=== PATIENT | male | born 1955 | race Caucasian/White ===

== ENCOUNTER 2017-02-23 17:34 | Inpatient (IN) | payer MEDICARE, OTHER ==
[~2017-02-23] VITALS: Ht 175.3 cm; Wt 87.7 kg
[~2017-02-23 17:34] MED LIST: ATOR40TA68 PO; BENA20TA48 PO; ERGO500014 PO; FURO40TA4 PO; HYDR-3672 PO; METF1000 PO; NIT4 SL; OMEP40CA6 PO; POTA8CAP PO; PRAS10TA6 PO; RIVA20TA PO; SYN1 PO
[2017-02-23 17:35] VITALS: Ht 175.3 cm; Wt 87.7 kg
[2017-02-23] MEDS ORDERED: SOD CHLORIDE 0.9% 500 ML IV STA (18:16)
--- NOTE | 2017-02-23 18:52 | RADRPT ---
PROCEDURE: XR Chest. CLINICAL INDICATION: Chest pain. TECHNIQUE: Single frontal view of the chest. COMPARISON: 06/11/2016 FINDINGS: Cardiomegaly. Pulmonary vascular congestion and bilateral patchy air space disease at lung bases. N o signs of pleural fluid or pneumothorax are seen. The osseous structures and soft tissues are unrem arkable. IMPRESSION: Mild failure. RPTAT: [facility] Physician Theresa Date Time Electronically viewed and signed by Anu Yee Physician on 02/23/2017 18:52 RS/
[2017-02-23 18:53] LABS: BASOPHILS % 0.3 % (0.0-2.0); EOSINOPHILS # 0.1 10^3/ul (0.0-0.5); EOSINOPHILS % 1.3 % (0.0-7.0); HEMATOCRIT 33.4 % (42.0-52.0); LYMPHOCYTES # 0.7 10^3/ul (0.8-2.9); LYMPHOCYTES % 11.2 % (15.0-51.0); MEAN CORPUSCULAR HEMOGLOBIN 29.9 pg (29.0-33.0); MEAN CORPUSCULAR HGB CONC 32.9 g/dl (32.0-37.0); MEAN CORPUSCULAR VOLUME 90.8 fl (82.0-101.0); MEAN PLATELET VOLUME 11.4 fl (7.4-10.4); MONOCYTE # 0.5 10^3/ul (0.3-0.9); MONOCYTES % 8.2 % (0.0-11.0); NEUTROPHILS % 78.7 % (39.0-77.0); PLATELET COUNT 256 10^3/UL (140-415); RED BLOOD COUNT 3.68 10^6/ul (4.70-6.10); RED CELL DISTRIBUTION WIDTH 14.5 % (11.5-14.5); WHITE BLOOD COUNT 6.4 10^3/ul (4.8-10.8)
[2017-02-23] MEDS ORDERED: HYDR100T7 PO (19:07)
[2017-02-23] MEDS ORDERED: BENA40TA41 PO (19:07)
[2017-02-23] MEDS ORDERED: SPIR25TA PO (19:09)
[2017-02-23 19:11] LABS: INR 2.14; PROTIME 24.1 Sec (12.2-14.2); PT RATIO 1.9
[2017-02-23 19:12] LABS: PARTIAL THROMBOPLASTIN TIME 61.2 Sec (25.0-35.0)
[2017-02-23] MEDS ORDERED: AMLO-147 PO (19:12)
[2017-02-23 19:26] LABS: CALCIUM 9.7 mg/dl (8.4-10.2); CREATININE 1.44 mg/dl (0.61-1.24); POTASSIUM 4.1 mmol/L (3.5-5.1)
[2017-02-23 19:33] LABS: ADD UMIC NO; UR ASCORBIC ACID NEGATIVE (NEGATIVE); UR BILIRUBIN (Dip) NEGATIVE (NEGATIVE); UR BLOOD (Dip) NEGATIVE (NEGATIVE); UR CLARITY CLEAR (CLEAR); UR COLOR STRAW (YELLOW); UR GLUCOSE (Dip) NEGATIVE (NEGATIVE); UR KETONES (Dip) NEGATIVE (NEGATIVE); UR LEUKOCYTE ESTERASE (Dip) NEGATIVE Leu/ul (NEGATIVE); UR NITRITE (Dip) NEGATIVE (NEGATIVE); UR TOTAL PROTEIN (Dip) NEGATIVE (NEGATIVE); UR UROBILINOGEN (Dip) NEGATIVE (NEGATIVE)
[2017-02-23 19:37] LABS: TROPONIN-I 0.038 ng/ml (0.00-0.12)
[2017-02-23] MEDS ORDERED: FUROSEMIDE 40 MG INJ IV ONE (20:00)
[2017-02-23] MEDS ORDERED: METOPROLOL 5 MG INJ IV ONE (21:00)
[2017-02-24] VITALS (9 sets, daily range): BP systolic 117–146; BP diastolic 62–72; PULSE 59–84; RESP 18–20
[2017-02-24] MEDS ORDERED: ACETAMINOPHEN 325 MG TAB PO PRN (04:00)
[2017-02-24] MEDS ORDERED: NACL 0.9% 3 ML SYG IV SCH (04:00)
[2017-02-24] MEDS ORDERED: DOCUSATE SODIUM 100 MG CAP PO PRN (04:00)
[2017-02-24] MEDS ORDERED: ONDANSETRON 4 MG INJ IV PRN (04:00)
[2017-02-24] MEDS ORDERED: BISACODYL (EC) 5 MG TAB PO PRN (04:00)
[2017-02-24 06:02] LABS: BASOPHILS % 0.7 % (0.0-2.0); EOSINOPHILS # 0.2 10^3/ul (0.0-0.5); EOSINOPHILS % 3.6 % (0.0-7.0); HEMATOCRIT 30.6 % (42.0-52.0); HEMOGLOBIN 9.6 g/dl (14.0-18.0); LYMPHOCYTES # 0.7 10^3/ul (0.8-2.9); LYMPHOCYTES % 16.1 % (15.0-51.0); MEAN CORPUSCULAR HEMOGLOBIN 28.8 pg (29.0-33.0); MEAN CORPUSCULAR HGB CONC 31.4 g/dl (32.0-37.0); MEAN CORPUSCULAR VOLUME 91.9 fl (82.0-101.0); MEAN PLATELET VOLUME 11.1 fl (7.4-10.4); MONOCYTE # 0.4 10^3/ul (0.3-0.9); MONOCYTES % 10.3 % (0.0-11.0); NEUTROPHIL # 2.9 10^3/ul (1.6-7.5); NEUTROPHILS % 69.1 % (39.0-77.0); PLATELET COUNT 214 10^3/UL (140-415); RED BLOOD COUNT 3.33 10^6/ul (4.70-6.10); RED CELL DISTRIBUTION WIDTH 14.5 % (11.5-14.5); WHITE BLOOD COUNT 4.2 10^3/ul (4.8-10.8)
[2017-02-24 06:40] LABS: ALBUMIN 3.8 g/dl (3.3-4.9); ALBUMIN/GLOBULIN RATIO 1.4; BILIRUBIN,INDIRECT 0.5 mg/dl (0-1.1); BILIRUBIN,TOTAL 0.5 mg/dl (0.2-1.3); CALCIUM 9.1 mg/dl (8.4-10.2); CHOL/HDL RATIO 10.3 RATIO; CREATININE 1.36 mg/dl (0.61-1.24); POTASSIUM 3.9 mmol/L (3.5-5.1); TOTAL PROTEIN 6.5 g/dl (6.1-8.1)
--- NOTE | 2017-02-24 07:01 | HP ---
Date/Time of Note Date/Time of Note DATE: 02/24/17 TIME: 06:48 Assessment/Plan VTE Prophylaxis VTE Prophylaxis Intervention: other (On Xarelto) Assessment/Plan Chief Complaint/Hosp Course This is a 61-year-old male being admitted to the telemetry floor for: #1 CHF exacerbation: The current time will provide IV diuresis with Lasix twice daily. Will restrict fluid intake to 800 cc a day. Will patient on a cardiac diet. Will monitor I's and O's. Will order 2D echocardiogram. Will consult cardiology. #2 Suspected PVD: Patient describes lower extremity tightness while walking. Based on his medical comorbidities at this time will attempt to rule him out for peripheral vascular disease. Will start by ordering Doppler ultrasounds to rule out DVT though at the current time there is no signs of erythema or redness noted at the calf area. Will consult vascular surgery for further treatment strategy and choice of imaging studies. 1-2+ pedal pulses. #3 diabetes mellitus: Check a hemoglobin A1c, insulin sliding scale. #4 hypertension: Continue home medications #5 CAD: Patient has an extensive cardiac history and multiple cardiac stenting. Continue home medication at this time. Will consult cardiology. #6 acute on chronic kidney disease: We will continue to monitor at this time. Will hold nephrotoxic agents. And monitor renal function. Nephrology consult if indicated. #7 paroxysmal A. fib: Patient currently has an irregularly irregular rhythm currently rate controlled. Continue Xarelto. #8DVT and GI prophylaxis: Patient is currently on Xarelto for A. fib, Protonix Further treatment strategy will be implemented as per the clinical course Problems: HPI/ROS Admit Date/Time Admit Date/Time Hx of Present Illness Chief complaint: Shortness of breath and weakness This is a 61-year-old male who presents today with shortness of breath and weakness over the last few days. Patient states that he become short of breath and weak after walking short distances. Patient states that he also notices leg swelling and he has tightness of his calves which gets relieved with rest. He does report that he takes his medications however he did not take his water pill over the last 2 days. Based on previous records it does appear the patient may be noncompliant with his medications. He denies any chest pain. Allergies: NKDA Medications: See DIA BRO Const: As per HPI Eyes : No pain discharge or redness or change in visual acuity ENT: No pain, sore throat, congestion, congestion, dysphagia or discharge Respiratory: As per HPI Cardiovascular: As per HPI GI : no change in appetite, abdominal pain, nausea, vomiting, diarrhea, constipation, or change in the color his stool Genitourinary: No dysuria, hematuria, flank pain , discharge or CVA tenderness Musculoskeletal: As per HPI Skin: No rash, bruising or hives Neuro: No headache, dizziness, syncope, seizure, focal weakness Endocrine: No polyuria, polydipsia, temperature intolerance Psych: No hallucination, depression, anxiety or suicidal ideation PMH/Family/Social Past Medical History 1. Severe coronary artery disease status post multiple stenting including to the LAD, RCA, left main and left distal circumflex and more recently status post balloon angioplasty of 100% occluded LAD lesion in March 2016. 2. Hyperlipidemia. 3. Hypothyroidism. 4. Chronic paroxysmal atrial fibrillation and SVT. 5. Diabetes mellitus. 6. Hypertension. 7. Gastroesophageal reflux disease. Past Surgical History Status post multiple angiograms, multiple cardiac stents per Family History Significant Family History: no pertinent family hx Social History Alcohol Use: occasionally Smoking Status: Never smoker Drug Use: none Exam/Review of Systems Vital Signs Vitals Vital Signs Date Time Temp Pulse Resp B/P Pulse Ox O2 Delivery O2 Flow Rate FiO2 02/24/17 05:38 63 16 121/80 100 Nasal Cannula 2.0 02/23/17 17:35 99.5 Exam Exam General: Patient is well-developed well-nourished The patient is alert oriented -3 lying comfortably in bed. HEENT: Atraumatic, normocephalic. The pupils are equal, round and reactive. Extraocular motor are intact Neck: Supple with full range of motion. No rigidity or meningismus Chest: Nontender Lungs: Clear to auscultation bilaterally no crackles rales or wheezing Heart: Irregularly irregular rhythm, no overt murmurs appreciated auscultation Abdomen: Soft , nontender, nondistended , bowel sounds are present. No guarding no rebound tenderness , No masses or organomegaly. No costovertebral temporal angle mass Extremities: 1+ pitting edema of the bilateral lower extremities from the foot all the way up to the lower shins Neurologic: Normal mental status, speech normal, cranial nerves II through XII are intact, motor and sensory are intact, no focal weakness Additional Comments PROCEDURE: XR Chest. CLINICAL INDICATION: Chest pain. TECHNIQUE: Single frontal view of the chest. COMPARISON: 06/11/2016 FINDINGS: Cardiomegaly. Pulmonary vascular congestion and bilateral patchy air space disease at lung bases. No signs of pleural fluid or pneumothorax are seen. The osseous structures and soft tissues are unremarkable. IMPRESSION: Mild failure. RPTAT: [facility] Anu Yee Physician Date Time Electronically viewed and signed by Anu Yee Physician on 02/23/2017 18:52 RS/ Telemetry monitoring: Shows irregularly irregular rhythm currently controlled at around 70-80 bpm. Labs Result Diagram: 02/23/170 02/23/17 1830 Medications Medications Current Medications Ondansetron HCl (Zofran Inj) 4 mg Q6H PRN IV NAUSEA AND/OR VOMITING; Start at 04:00 Acetaminophen (Tylenol Tab) 650 mg Q6H PRN PO PAIN LEVEL 1-3 OR FEVER; Start at 04:00 Docusate Sodium (Colace) 100 mg Q12H PRN PO CONSTIPATION; Start 02/24/17 at 04: 00 Bisacodyl (Dulcolax) 5 mg DAILY PRN PO CONSTIPATION; Start 02/24/17 at 04:00 Pantoprazole (Protonix Iv) 40 mg DAILY@06 IV ; Start 02/24/17 at 06:00 Amlodipine Besylate (Norvasc) 10 mg DAILY PO ; Start 02/24/17 at 09:00 Benazepril HCl (Lotensin) 40 mg DAILY PO ; Start 02/24/17 at 09:00 Hydralazine HCl (Apresoline) 100 mg Q8 PO ; Start 02/24/17 at 06:00 Prasugrel (Effient) 10 mg DAILY PO ; Start 02/24/17 at 09:00; Status UNV Spironolactone (Aldactone) 25 mg DAILY PO ; Start 02/24/17 at 09:00 MICAELA RIVERA Feb 24, 2017 06:59
[2017-02-24] MEDS ORDERED: GLUCOSE GEL 15 GRAM TUBE BUCCAL PRN (07:30)
[2017-02-24] MEDS ORDERED: GLUCAGON 1 MG INJ IM PRN (07:30)
[2017-02-24] MEDS ORDERED: GLUCOSE GEL 15 GRAM TUBE PO PRN ×2 (07:30)
[2017-02-24] MEDS ORDERED: DEXTROSE 50% 50 ML SYRINGE IV PRN ×2 (07:30)
[2017-02-24 07:39] LABS: THYROID STIMULATING HORMONE 1.67 MIU/L (0.465-4.680)
[2017-02-24 08:06] LABS: TROPONIN-I 0.047 ng/ml (0.00-0.12)
[2017-02-24 08:10] LABS: CK-MB 1.01 ng/ml (0.0-2.4)
--- NOTE | 2017-02-24 08:13 | RADRPT ---
PROCEDURE: US bilateral lower extremity veins. CLINICAL INDICATION: Bilateral leg pain and swelling. TECHNIQUE: Multiple longitudinal and transverse images of the bilateral lower extremity veins were obtained with clancy scale and color Doppler imaging. The common femoral vein, femoral vein, and popl iteal vein were evaluated. 2D grayscale measurements with compression sonography, color Doppler, and pulsed Doppler with augmentation. COMPARISON: No prior studies are available for comparison. FINDINGS: The bilateral common femoral, femoral and popliteal veins are normally compressible throughout. Col or flow demonstrates normal filling of the vessels. Normal waveforms are visualized and there is no rmal response to augmentation. IMPRESSION: 1. No evidence of deep vein thrombosis involving either lower extremity. RPTAT: QQ .Chavez Hebert MD, MD Date Time Electronically viewed and signed by .Chavez Hebert MD, on 02/24/2017 08:12 .R/
[2017-02-24] MEDS: PANTOPRAZOLE 40 MG INJ IV SCH (09:21)
[2017-02-24] MEDS: INSULIN ASPART [NOVOLOG] 3 ML PEN SC SCH ×4 (09:22→21:00)
[2017-02-24] MEDS: AMLODIPINE 10 MG TAB PO SCH (10:00)
[2017-02-24] MEDS: SPIRONOLACTONE 25 MG TAB PO SCH (10:00)
[2017-02-24] MEDS: FUROSEMIDE 40 MG INJ IV SCH ×2 (10:00→18:15)
[2017-02-24 11:34] LABS: TROPONIN-I 0.035 ng/ml (0.00-0.12)
[2017-02-24 11:47] LABS: CK-MB 1.14 ng/ml (0.0-2.4)
[2017-02-24] MEDS: BENAZEPRIL 40 MG TAB PO SCH (12:44)
[2017-02-24] MEDS: PRASUGREL HYDROCHLORIDE 10 MG TABLET PO SCH (12:53)
--- NOTE | 2017-02-24 16:05 | RADRPT ---
PROCEDURE: US bilateral lower extremity arteries. CLINICAL INDICATION: Bilateral leg pain. Claudication that interferes significantly with the alireza ent's lifestyle. TECHNIQUE: Multiple longitudinal and transverse images of the bilateral lower extremity arteries w ere obtained with clancy scale, pulsed Doppler, and color Doppler imaging. COMPARISON: No prior studies are available for comparison. FINDINGS: Right CAMPUS DIRECTOR:105 cm/sec PSFA:108 cm/sec MSFA:257 cm/sec DSFA:116 cm/sec POP:75 cm/sec SALESPERSON MEN'S HATS:69 cm/sec DPA:26 cm/sec Left CAMPUS DIRECTOR:78 cm/sec PSFA:87 cm/sec MSFA:343 cm/sec DSFA:74 cm/sec POP:43 cm/sec SALESPERSON MEN'S HATS:41 cm/sec DPA:15 cm/sec The right ankle-brachial index is 0.94 and the left ankle-brachial index is 0.94. High velocity flow is present in the mid right superficial femoral artery indicating approximately 5 0% stenosis. High velocity flow is present in the mid left superficial femoral artery indicating ap proximately 75% stenosis. There is abnormal monophasic flow bilaterally in the popliteal and calf arteries. IMPRESSION: 1. Approximately 50% stenosis in the mid right superficial femoral artery with monophasic flow in t he popliteal and calf arteries consistent with significant stenosis. 2. Approximately a 75% stenosis in the mid left superficial femoral artery with monophasic flow in the popliteal and calf arteries consistent with significant stenosis. RPTAT: QQ .Chavez Hebert MD, Date Time Electronically viewed and signed by .Chavez Hebert MD, on 02/24/2017 16:05 .R/
--- NOTE | 2017-02-24 16:05 | RADRPT ---
PROCEDURE: US Lower extremity Venous. CLINICAL INDICATION: Vein mapping, TECHNIQUE: Multiple sonographic images of the bilateral lower extremity superficial venous system was obtained utilizing grayscale, color-flow, compressive sonography and doppler imaging with augmen tation. The images were reviewed on a PACS workstation. COMPARISON: None. FINDINGS: Measurements from the great saphenous veins were obtained. Right great saphenous vein was divided into eight segments with the first segment being more proxima l in the 8th segment more distal. Measurements were obtained as below in mm. 1. 5.2 mm 2. 2.4 mm 3. 3.4 mm 4. 3.0 mm 5. 1.8 mm 6. 2.4 mm 7. 2.4 mm 8. 2.5 mm Left great saphenous vein was divided into eight segments with the first segment being more proximal in the 8th segment more distal. Measurements were obtained as below in mm. 1. 4.6 mm 2. 2.8 mm 3. 2.7 mm 4. 2.8 mm 5. 2.5 mm 6. 1.2 mm 7. 2.5 mm 8. 2.3 mm . IMPRESSION: Bilateral greater saphenous vein mapping as described.. RPTAT: AA .Malvin Landaverde MD, Date Time Electronically viewed and signed by .Malvin Landaverde MD, MD on 02/24/2017 16:05 .S/
[2017-02-24] MEDS: RIVAROXABAN 20 MG TABLET PO SCH (18:46)
[2017-02-24] MEDS: ISOSORBIDE DINITRATE 10 MG TAB PO SCH (21:11)
[2017-02-24] MEDS: METOPROLOL 25 MG TAB PO SCH (21:12)
[2017-02-24] MEDS: INSULIN GLARGINE [LANtus] 3 ML PEN SC SCH (21:21)
[2017-02-25] VITALS (14 sets, daily range): BP systolic 96–132; BP diastolic 53–72; PULSE 54–133; RESP 18–19
[2017-02-25 01:47] LABS: TROPONIN-I 0.03 ng/ml (0.00-0.12)
[2017-02-25 01:48] LABS: CK-MB 0.83 ng/ml (0.0-2.4)
[2017-02-25] MEDS: ACCU-CHEK XX SCH (02:00)
--- NOTE | 2017-02-25 05:42 | HP ---
DATE OF ADMISSION: 02/24/2017 Dear doctors: HISTORY OF PRESENT ILLNESS: Mr. Chen is a 61-year-old gentleman who presented to [facility] secondary to shortness of breath and weakness over the past 4 or 5 days. The patient mentioned that also he has been having difficulty with his ambulation and he can only walk for about 2-5 minutes prior to having discomfort in bilateral lower extremities. There is some language barrier. The patient is Romansh speaking, and he had difficulty understanding with what we were trying to ask him in regards for rest pain versus how long he has been having the current symptoms. At the moment the patient denies chest pain, nausea, vomiting, fever or chills. The patient does not have rest pain; however, it is unclear which limb is having more symptoms over the other, or if they are equally symptomatic. REVIEW OF SYSTEMS: Fourteen point review performed negative except was was mentioned in the HPI. PAST MEDICAL HISTORY: Entails coronary artery disease, hyperlipidemia, hypothyroidism, chronic paroxysmal atrial fibrillation, diabetes, hypertension, GERD, morbid obesity, BMI of 29. PAST SURGICAL HISTORY: Multiple coronary angiograms, multiple cardiac stents. FAMILY HISTORY: Positive for hypertension. SOCIAL HISTORY: Denies tobacco, alcohol or illicit drug use excessively. He does drink alcohol socially. PHYSICAL EXAMINATION: Alert and oriented x3. No apparent distress. HEENT: Normocephalic and atraumatic. PERRLA. EOMI. Mucosa moist. NECK: Supple. No carotid bruit. LUNGS: Clear to auscultation. Bilateral bases with crackles. Good airway entry. ABDOMEN: Soft, nontender and nondistended. Bowel sounds positive. Truncal obesity. EXTREMITIES: Right lower extremity, palpable femoral pulse, nonpalpable pedal pulse. Motor and sensory intact. Capillary refill 3-4 seconds. Presence of telangiectasias, spider veins and varicose veins. Edema of 1+. Left lower extremity, palpable femoral pulse, nonpalpable pedal pulse. Motor and sensory intact. Capillary refill 3-4 seconds. Presence of telangiectasias, spider veins and varicose veins in the lower leg. Edema of 1+. ASSESSMENT AND PLAN: 1. Bilateral lower extremity atherosclerosis with a disabling claudication: It seems the patient may have some component of atherosclerosis; however, it is difficult to ascertain how long the patient has had the symptoms versus worsening over the past month. Further the patient did not describe which limb has more symptoms than the other. We will plan to obtain noninvasive vascular studies of bilateral lower extremity arterial duplex to further delineate his [____] disease. 2. Bilateral lower extremity venous insufficiency: Is seems the patient has component of venous insufficiency as he does have varicose veins bilaterally in his lower leg. At the moment no current intervention will be needed; however, as an outpatient we will plan to schedule the patient for bilateral lower reflux studies to further delineate if the pating has superficial versus deep venous reflux. 3. Optimize vascular status (BP medications, nutrition, exercise, sugar control, antiplatelets). 4. Discussed the findings, plans ad manageent with the patient. He understands that with a certified technical support engineer. Thank you for allowing us to partake in the care of your patient. Please call with any questions. Dictated By: Boy Durbin MD /rain/elaine /Document#: [id number]
[2017-02-25] MEDS: PANTOPRAZOLE 40 MG INJ IV SCH (05:56)
[2017-02-25] MEDS: FUROSEMIDE 40 MG INJ IV SCH (05:56)
[2017-02-25] MEDS: INSULIN ASPART [NOVOLOG] 3 ML PEN SC SCH ×4 (08:00→20:43)
[2017-02-25] MEDS: METOPROLOL 25 MG TAB PO SCH ×2 (08:43→20:29)
[2017-02-25] MEDS: PRASUGREL HYDROCHLORIDE 10 MG TABLET PO SCH (08:43)
[2017-02-25] MEDS: AMLODIPINE 10 MG TAB PO SCH (08:43)
[2017-02-25] MEDS: SPIRONOLACTONE 25 MG TAB PO SCH (08:43)
[2017-02-25] MEDS: BENAZEPRIL 40 MG TAB PO SCH (08:44)
[2017-02-25] MEDS: ISOSORBIDE DINITRATE 10 MG TAB PO SCH ×3 (08:44→20:30)
[2017-02-25 10:09] LABS: BASOPHILS % 0.3 % (0.0-2.0); EOSINOPHILS # 0.1 10^3/ul (0.0-0.5); EOSINOPHILS % 1.9 % (0.0-7.0); HEMOGLOBIN 10.6 g/dl (14.0-18.0); LYMPHOCYTES # 0.8 10^3/ul (0.8-2.9); LYMPHOCYTES % 11.4 % (15.0-51.0); MEAN CORPUSCULAR HEMOGLOBIN 29.1 pg (29.0-33.0); MEAN CORPUSCULAR HGB CONC 32.1 g/dl (32.0-37.0); MEAN CORPUSCULAR VOLUME 90.7 fl (82.0-101.0); MEAN PLATELET VOLUME 10.8 fl (7.4-10.4); MONOCYTE # 0.6 10^3/ul (0.3-0.9); MONOCYTES % 8.7 % (0.0-11.0); NEUTROPHIL # 5.4 10^3/ul (1.6-7.5); NEUTROPHILS % 77.4 % (39.0-77.0); PLATELET COUNT 261 10^3/UL (140-415); RED BLOOD COUNT 3.64 10^6/ul (4.70-6.10); RED CELL DISTRIBUTION WIDTH 14.2 % (11.5-14.5); WHITE BLOOD COUNT 6.9 10^3/ul (4.8-10.8)
[2017-02-25 10:35] LABS: CALCIUM 9.1 mg/dl (8.4-10.2); CREATININE 1.24 mg/dl (0.61-1.24); MAGNESIUM 1.8 mg/dl (1.7-2.5); POTASSIUM 4.4 mmol/L (3.5-5.1)
[2017-02-25 10:46] LABS: TROPONIN-I 0.029 ng/ml (0.00-0.12)
[2017-02-25 10:51] LABS: CK-MB 0.85 ng/ml (0.0-2.4)
[2017-02-25 10:56] LABS: IRON 35 ug/dl (35-150)
[2017-02-25 11:05] LABS: TOTAL IRON BINDING CAPACITY 250 ug/dl (241-421)
--- NOTE | 2017-02-25 13:33 | CONS ---
Date/Time of Note Date/Time of Note DATE: 02/25/17 TIME: 13:27 Assessment/Plan Assessment/Plan Chief Complaint/Hosp Course IMP: 1. chest pain-negative trop x 3 2.PAD/claudication 3.HTN 4.HL 5. H/O stent 6. cardiomyopathy-with decrased LVEF by echo this admit 7. Bradycardia Recc: -Tele -serial ecg's -lexiscan stress test today -Continue BB/isordil/norvasc/benazepril -Continue effient/xarelto Problems: Consultation Date/Type/Reason Admit Date/Time Feb 24, 2017 at 03:35 Initial Consult Date 02/24/2017 Type of Consultation: cardiology Reason for Consultation chest pain Referring Provider: REYMUNDO GARCIA Exam/Review of Systems Vital Signs Vitals Vital Signs Date Time Temp Pulse Resp B/P Pulse Ox O2 Delivery O2 Flow Rate FiO2 02/25/17 11:44 97.8 61 18 122/69 97 02/25/17 03:57 Room Air 02/24/17 07:19 2.0 Intake and Output 02/24/17 02/24/17 02/25/17 15:00 23:00 07:00 Intake Total 400 ml 500 ml Balance 400 ml 500 ml Exam Review of Systems: CONSTITUTIONAL: No fevers, chills. PULMONARY: No sob CARDIOVASCULAR: intermittent chest pain/palpitations GASTROINTESTINAL: No nausea/vomiting. GENITOURINARY: No hematuria/dysuria. MUSCULOSKELETAL: No myagias/arthalgias. PSYCHIATRIC: The patient denies depression. NEUROLOGIC: No weakness Constitutional: alert Psych: no complaints Head: normocephalic ENMT: mucosa pink and moist Neck: jvd (9 cm water), supple Respiratory: diminished breath sounds (at bases/B) Cardiovascular: regular rate and rhythm Gastrointestinal: non-tender, soft Musculoskeletal: muscle tone (normal) Extremities: edema (none) Neurological: other (No focal deficits) Results Result Diagram: 02/25/17 0956 02/25/17 0956 Results 24 hrs Laboratory Tests Test 02/24/17 17:21 02/24/17 17:41 02/24/17 21:05 02/25/17 00:47 Bedside Glucose 64 L 76 171 Creatine Kinase 34 Creatine Kinase Index 2.4 Creatinine Kinase MB (Mass) 0.83 Troponin I 0.030 Test 02/25/17 07:53 02/25/17 09:56 Bedside Glucose 81 White Blood Count 6.9 # Red Blood Count 3.64 L Hemoglobin 10.6 L Hematocrit 33.0 L Mean Corpuscular Volume 90.7 Mean Corpuscular Hemoglobin 29.1 Mean Corpuscular Hemoglobin Concent 32.1 Red Cell Distribution Width 14.2 Platelet Count 261 # Mean Platelet Volume 10.8 H Neutrophils % 77.4 H Lymphocytes % 11.4 L Monocytes % 8.7 Eosinophils % 1.9 Basophils % 0.3 Nucleated Red Blood Cells % 0.0 Neutrophils # 5.4 Lymphocytes # 0.8 Monocytes # 0.6 Eosinophils # 0.1 Basophils # 0.0 Nucleated Red Blood Cells # 0.0 Sodium Level 140 Potassium Level 4.4 Chloride Level 93 L Carbon Dioxide Level 33 H Anion Gap 18 H Blood Urea Nitrogen 33 H Creatinine 1.24 Glucose Level 137 # Hemoglobin A1c 5.4 Calcium Level 9.1 Magnesium Level 1.8 Iron Level 35 Total Iron Binding Capacity 250 Percent Iron Saturation 14 L Creatine Kinase 32 Creatine Kinase Index 2.7 Creatinine Kinase MB (Mass) 0.85 Troponin I 0.029 Medications Medications Current Medications Ondansetron HCl (Zofran Inj) 4 mg Q6H PRN IV NAUSEA AND/OR VOMITING; Start at 04:00 Acetaminophen (Tylenol Tab) 650 mg Q6H PRN PO PAIN LEVEL 1-3 OR FEVER; Start at 04:00 Docusate Sodium (Colace) 100 mg Q12H PRN PO CONSTIPATION; Start 02/24/17 at 04: 00 Bisacodyl (Dulcolax) 5 mg DAILY PRN PO CONSTIPATION; Start 02/24/17 at 04:00 Pantoprazole (Protonix Iv) 40 mg DAILY@06 IV Last administered on 02/25/17 05: 56; Admin Dose 40 MG; Start 02/24/17 at 06:00 Amlodipine Besylate (Norvasc) 10 mg DAILY PO Last administered on 02/25/17 08: 43; Admin Dose 10 MG; Start 02/24/17 at 09:00 Benazepril HCl (Lotensin) 40 mg DAILY PO Last administered on 02/25/17 08:44; Admin Dose 40 MG; Start 02/24/17 at 09:00 Hydralazine HCl (Apresoline) 100 mg Q8 PO Last administered on 02/24/17 14:48 ; Admin Dose 100 MG; Start 02/24/17 at 06:00 Prasugrel (Effient) 10 mg DAILY PO Last administered on 02/25/17 08:43; Admin Dose 10 MG; Start 02/24/17 at 12:00 Spironolactone (Aldactone) 25 mg DAILY PO Last administered on 02/25/17 08:43 ; Admin Dose 25 MG; Start 02/24/17 at 09:00 Diagnostic Test (Pha) (Accu-Chek) 1 ea 02 XX ; Start 02/25/17 at 02:00 Miscellaneous Information 1 ea NOTE XX ; Start 02/24/17 at 07:30 Glucose (Glutose) 15 gm Q15M PRN PO DECREASED GLUCOSE; Start 02/24/17 at 07:30 Glucose (Glutose) 22.5 gm Q15M PRN PO DECREASED GLUCOSE; Start 02/24/17 at 07: 30 Dextrose (D50w Syringe) 25 ml Q15M PRN IV DECREASED GLUCOSE; Start 02/24/17 at 07:30 Dextrose (D50w Syringe) 50 ml Q15M PRN IV DECREASED GLUCOSE; Start 02/24/17 at 07:30 Glucagon (Glucagen) 1 mg Q15M PRN IM DECREASED GLUCOSE; Start 02/24/17 at 07:30 Glucose (Glutose) 15 gm Q15M PRN BUCCAL DECREASED GLUCOSE; Start 02/24/17 at 07 :30 Insulin Glargine (Lantus) 10 unit QHS SC Last administered on 02/24/17 21:21; Admin Dose 10 UNIT; Start 02/24/17 at 21:00 Isosorbide Dinitrate (Isordil) 10 mg TID PO Last administered on 02/25/17 08: 44; Admin Dose 10 MG; Start 02/24/17 at 21:00 Metoprolol Tartrate (Lopressor) 12.5 mg BID PO Last administered on 02/25/17 08:43; Admin Dose 12.5 MG; Start 02/24/17 at 21:00 SUHA MACDONALD Feb 25, 2017 13:33
--- NOTE | 2017-02-25 16:11 | RADRPT ---
PROCEDURE: Lexiscan myocardial perfusion study CLINICAL INDICATION: 61 -year-old patient complaining of chest pain. TECHNIQUE: Lexiscan 0.4 mg intravenously separate acquisition gated myocardial perfusion SPECT usi ng Tc 99m Myoview 29.2 mCi intravenously at stress and Tc-99m Myoview, 10.4 mCi intravenously at res t was performed using the rest/stress sequence. Poststress Myoview SPECT images were obtained in th e supine position. COMPARISON: March 29, 2014. FINDINGS: Perfusion images reveal a new moderate size moderate to severe in degree nonreversible perfusion def ect in the anteroapical, distal to mid anterior and distal to mid anteroseptal baldwin. Lexiscan post stress gated SPECT images demonstrate moderate hypokinesis of the left ventricle. IMPRESSION: 1. The type and distribution of the scintigraphic abnormalities are most consistent with a new mode rate-sized nonreversible perfusion defect involving the anteroapical, distal to mid anterior and dis bibi to mid anteroseptal baldwin. 2. Moderate hypokinesis of the left ventricle. 3. The left ventricle ejection fraction at stress is 36%. (Prior EF was 43%). A call report was made to Dr. Zuniga at 04:05 p.m. on February 25, 2017. RPTAT: HH .Cynthia Kang MD, Date Time Electronically viewed and signed by .Cynthia Kang MD, MD on 02/25/2017 16:11 .L/
[2017-02-25] MEDS: RIVAROXABAN 20 MG TABLET PO SCH (17:49)
[2017-02-25] MEDS ORDERED: REGADENOSON 0.4 MG/5 ML SYG ONE (18:03)
--- NOTE | 2017-02-25 19:17 | PN ---
Date/Time of Note Date/Time of Note DATE: 02/25/17 TIME: 19:13 Assessment/Plan VTE Prophylaxis VTE Prophylaxis Intervention: contraindicated Lines/Catheters IV Catheter Type (from Nrs): Saline Lock Urinary Cath still in place: No Assessment/Plan Chief Complaint/Hosp Course 61 yo male with h/o DMII, CAD s/p stent, permament A Fib, reduced systolic function, PVD presenting with exertional chest and b/l calf pain as well as acute systolic CHF exacerbation Acute on chronic CHF exacerbation: - Euvolemic, will stop IV lasix and start 40 PO lasix daily chornically - Conitnue CLAUDE-I - Uptitrate BB as tolerated - Troy indicated CAD: - Continue prasugrel, statin A Fib: - Continue Xarelto, adequately rate controlled PAD: - Awiat recommendations from vascular surgery, otherwise continue medical managment of vascular disease DMII: - Continue basal/bolus insulin Discharge in coming 1-2 days following plan from cardiology/vascular Problems: Subjective 24 Hr Interval Summary Free Text/Dictation Patient feels well at rest without chest pain dyspnea or peripheral limb pain JHONY show bilateral obstructions. Nuclear stress shows reduced ejection fraction and a nonreversible perfusion defect Exam/Review of Systems Vital Signs Vitals Vital Signs Date Time Temp Pulse Resp B/P Pulse Ox O2 Delivery O2 Flow Rate FiO2 02/25/17 16:19 70 02/25/17 15:52 98.0 18 118/61 96 02/25/17 03:57 Room Air 02/24/17 07:19 2.0 Intake and Output 02/24/17 02/24/17 02/25/17 14:59 22:59 06:59 Intake Total 400 ml 500 ml Balance 400 ml 500 ml Exam Well apperiang NAD RRR, flat neck veins Clear lungs No edema JHONY result, NST results noted Results Result Diagram: 02/25/17 0956 02/25/17 0956 Results 24 hrs Laboratory Tests Test 02/24/17 21:05 02/25/17 00:47 02/25/17 07:53 02/25/17 09:56 Bedside Glucose 171 81 Creatine Kinase 34 32 Creatine Kinase Index 2.4 2.7 Creatinine Kinase MB (Mass) 0.83 0.85 Troponin I 0.030 0.029 White Blood Count 6.9 # Red Blood Count 3.64 L Hemoglobin 10.6 L Hematocrit 33.0 L Mean Corpuscular Volume 90.7 Mean Corpuscular Hemoglobin 29.1 Mean Corpuscular Hemoglobin Concent 32.1 Red Cell Distribution Width 14.2 Platelet Count 261 # Mean Platelet Volume 10.8 H Neutrophils % 77.4 H Lymphocytes % 11.4 L Monocytes % 8.7 Eosinophils % 1.9 Basophils % 0.3 Nucleated Red Blood Cells % 0.0 Neutrophils # 5.4 Lymphocytes # 0.8 Monocytes # 0.6 Eosinophils # 0.1 Basophils # 0.0 Nucleated Red Blood Cells # 0.0 Sodium Level 140 Potassium Level 4.4 Chloride Level 93 L Carbon Dioxide Level 33 H Anion Gap 18 H Blood Urea Nitrogen 33 H Creatinine 1.24 Glucose Level 137 # Hemoglobin A1c 5.4 Calcium Level 9.1 Magnesium Level 1.8 Iron Level 35 Total Iron Binding Capacity 250 Percent Iron Saturation 14 L Ferritin 69.3 Test 02/25/17 17:36 Bedside Glucose 173 Medications Medications Current Medications Ondansetron HCl (Zofran Inj) 4 mg Q6H PRN IV NAUSEA AND/OR VOMITING; Start at 04:00 Acetaminophen (Tylenol Tab) 650 mg Q6H PRN PO PAIN LEVEL 1-3 OR FEVER; Start at 04:00 Docusate Sodium (Colace) 100 mg Q12H PRN PO CONSTIPATION; Start 02/24/17 at 04: 00 Bisacodyl (Dulcolax) 5 mg DAILY PRN PO CONSTIPATION; Start 02/24/17 at 04:00 Pantoprazole (Protonix Iv) 40 mg DAILY@06 IV Last administered on 02/25/17 05: 56; Admin Dose 40 MG; Start 02/24/17 at 06:00 Amlodipine Besylate (Norvasc) 10 mg DAILY PO Last administered on 02/25/17 08: 43; Admin Dose 10 MG; Start 02/24/17 at 09:00 Benazepril HCl (Lotensin) 40 mg DAILY PO Last administered on 02/25/17 08:44; Admin Dose 40 MG; Start 02/24/17 at 09:00 Hydralazine HCl (Apresoline) 100 mg Q8 PO Last administered on 02/25/17 15:10 ; Admin Dose 100 MG; Start 02/24/17 at 06:00 Prasugrel (Effient) 10 mg DAILY PO Last administered on 02/25/17 08:43; Admin Dose 10 MG; Start 02/24/17 at 12:00 Spironolactone (Aldactone) 25 mg DAILY PO Last administered on 02/25/17 08:43 ; Admin Dose 25 MG; Start 02/24/17 at 09:00 Diagnostic Test (Pha) (Accu-Chek) 1 ea 02 XX ; Start 02/25/17 at 02:00 Miscellaneous Information 1 ea NOTE XX ; Start 02/24/17 at 07:30 Glucose (Glutose) 15 gm Q15M PRN PO DECREASED GLUCOSE; Start 02/24/17 at 07:30 Glucose (Glutose) 22.5 gm Q15M PRN PO DECREASED GLUCOSE; Start 02/24/17 at 07: 30 Dextrose (D50w Syringe) 25 ml Q15M PRN IV DECREASED GLUCOSE; Start 02/24/17 at 07:30 Dextrose (D50w Syringe) 50 ml Q15M PRN IV DECREASED GLUCOSE; Start 02/24/17 at 07:30 Glucagon (Glucagen) 1 mg Q15M PRN IM DECREASED GLUCOSE; Start 02/24/17 at 07:30 Glucose (Glutose) 15 gm Q15M PRN BUCCAL DECREASED GLUCOSE; Start 02/24/17 at 07 :30 Insulin Glargine (Lantus) 10 unit QHS SC Last administered on 02/24/17 21:21; Admin Dose 10 UNIT; Start 02/24/17 at 21:00 Isosorbide Dinitrate (Isordil) 10 mg TID PO Last administered on 02/25/17 08: 44; Admin Dose 10 MG; Start 02/24/17 at 21:00 Metoprolol Tartrate (Lopressor) 12.5 mg BID PO Last administered on 02/25/17 08:43; Admin Dose 12.5 MG; Start 02/24/17 at 21:00 Furosemide (Lasix) 40 mg DAILY GTB ; Start 02/26/17 at 09:00 CARMENZA MCPHERSON MD Feb 25, 2017 19:16
[2017-02-25] MEDS: INSULIN GLARGINE [LANtus] 3 ML PEN SC SCH (20:42)
--- NOTE | 2017-02-25 22:13 | RADRPT ---
Echocardiogram Report ADDENDUM Patient Name: IRIS HITCHCOCK Gender: Male Date: 1955 Study Date: 24-Feb-2017 It Applications Developer: Julius [facility] Location: 5553 Ref. Physician: MICAELA RIVERA Quality: Adequate Procedures: Transthoracic echocardiogram with complete 2D, M-Mode, and doppler examination. Indications: CHF Exacer, A-fib. 2D/M Mode Doppler Measurement Value Normal Ranges Measurement Value Normal Ranges LVIDd 2D 5.4 3.5 - 5.6 cm AV Peak Kevon 1.6 m/sec LVIDs 2D 4.0 2.1 - 4.1 cm AV Peak PG 10.8 mmHg LVPWd 2D 1.3 0.6 - 1.1 cm LVOT Peak Kevon 1.1 m/sec IVSd 2D 1.3 0.6 - 1.1 cm LVOT Peak PG 4.8 mmHg AoR Diam 2D 3.2 2.0 - 3.7 cm EDV 2D 139.2 cm3 ESV 2D 64.9 cm3 Findings Left Ventricle: Normal left ventricular systolic function. Normal left ventricular cavity size. Mild concentric left ventricular hypertrophy. Moderate left ventricular systolic dysfunction. Ejection fraction is visually estimated at 3540 %. Abnormal Diastolic Function. Right Ventricle: Normal right ventricular size. Normal right ventricular systolic function. Left Atrium: The left atrium is normal in size. There is mild enlargement of left atrium. Right Atrium: The right atrium is normal in size. Mitral Valve: Mitral valve leaflets appear mildly thickened. Mild mitral annular calcification. Mild mitral valve regurgitation. Aortic Valve: Normal appearance of the aortic valve. No significant aortic stenosis or insufficiency. Tricuspid Valve: Normal appearance of the tricuspid valve. Unable to obtain RVSP due to minimal presence of tricuspid regurgitation. There is trace tricuspid regurgitation. Pericardium: Normal pericardium with no significant pericardial effusion. Aorta: Normal aortic root. IVC: Normal size and normal respiratory collapse consistent with normal right atrial pressure. Conclusions 1.Normal left ventricular systolic function. Normal left ventricular cavity size. Mild concentric left ventricular hypertrophy. Moderate left ventricular systolic dysfunction. Ejection fraction is visually estimated at 35-40 %. Abnormal Diastolic Function. 2.The left atrium is normal in size. There is mild enlargement of left atrium. 3.Mitral valve leaflets appear mildly thickened. Mild mitral annular calcification. Mild mitral valve regurgitation. 4.Normal appearance of the tricuspid valve. Unable to obtain RVSP due to minimal presence of tricuspid regurgitation. There is trace tricuspid regurgitation. Electronically Signed By: Oscar Zuniga 25-Feb-2017 22:13:46 -0700 [ADDENDUM] Patient Name: IRIS HITCHCOCK Study Date: 24-Feb-2017 [id number]
[2017-02-26] VITALS (11 sets, daily range): BP systolic 117–126; BP diastolic 62–85; PULSE 54–76; RESP 18–20
[2017-02-26] MEDS: ACCU-CHEK XX SCH (03:00)
[2017-02-26] MEDS: PANTOPRAZOLE 40 MG INJ IV SCH (06:08)
[2017-02-26] MEDS: INSULIN ASPART [NOVOLOG] 3 ML PEN SC SCH ×2 (08:00→12:00)
[2017-02-26] MEDS: METOPROLOL 25 MG TAB PO SCH (08:37)
[2017-02-26] MEDS: PRASUGREL HYDROCHLORIDE 10 MG TABLET PO SCH (08:39)
[2017-02-26] MEDS: ISOSORBIDE DINITRATE 10 MG TAB PO SCH (08:39)
[2017-02-26] MEDS: AMLODIPINE 10 MG TAB PO SCH (08:40)
[2017-02-26] MEDS: SPIRONOLACTONE 25 MG TAB PO SCH (08:40)
[2017-02-26] MEDS: BENAZEPRIL 40 MG TAB PO SCH (08:41)
[2017-02-26] MEDS ORDERED: FUROSEMIDE 40 MG TAB GTB SCH (09:00)
--- NOTE | 2017-02-26 11:07 | CONS ---
Date/Time of Note Date/Time of Note DATE: 02/26/17 TIME: 10:58 Assessment/Plan Assessment/Plan Chief Complaint/Hosp Course IMP: 1. chest pain-negative trop x 3/lexiscan with scar but no ischemia LVEF 36% bby echo 35%. NO current cp 2.PAD/claudication 3.HTN 4.HL 5. H/O stent 6. cardiomyopathy-with decrased LVEF by echo this admit 7. Bradycardia Recc: -Tele -serial ecg's -Continue BB with change to toprol XL/benazepil/imdur 30 mg in lieu of isordil and decrease dose of norvasc to allow patient to tolerate -Continue effient/xarelto -Continue lasix 40 po daily -Has scheduled f/u appt with me march 10 @9:40 AM Problems: Consultation Date/Type/Reason Admit Date/Time Feb 24, 2017 at 03:35 Initial Consult Date 02/24/2017 Type of Consultation: cardiology Reason for Consultation chest pain Referring Provider: REYMUNDO GARCIA Exam/Review of Systems Vital Signs Vitals Vital Signs Date Time Temp Pulse Resp B/P Pulse Ox O2 Delivery O2 Flow Rate FiO2 02/26/17 08:32 58 02/26/17 07:47 98.1 18 119/70 97 02/25/17 03:57 Room Air 02/24/17 07:19 2.0 Intake and Output 02/25/17 02/25/17 02/26/17 15:00 23:00 07:00 Intake Total 350 ml Balance 350 ml Exam Review of Systems: CONSTITUTIONAL: No fevers, chills. PULMONARY: No sob CARDIOVASCULAR: No chest pain/palpitations GASTROINTESTINAL: No nausea/vomiting. GENITOURINARY: No hematuria/dysuria. MUSCULOSKELETAL: No myagias/arthalgias. PSYCHIATRIC: The patient denies depression. NEUROLOGIC: No weakness Constitutional: alert, oriented Psych: no complaints Head: normocephalic ENMT: mucosa pink and moist Neck: jvd (8-9 cm water), supple Respiratory: diminished breath sounds (at bases/B) Cardiovascular: regular rate and rhythm Gastrointestinal: non-tender, soft Musculoskeletal: muscle tone (norml) Extremities: edema Neurological: other (No focal deficits) Results Result Diagram: 02/25/17 0956 02/25/17 0956 Results 24 hrs Laboratory Tests Test 02/25/17 17:36 02/26/17 03:32 02/26/17 08:27 Bedside Glucose 173 110 78 Medications Medications Current Medications Ondansetron HCl (Zofran Inj) 4 mg Q6H PRN IV NAUSEA AND/OR VOMITING; Start at 04:00 Acetaminophen (Tylenol Tab) 650 mg Q6H PRN PO PAIN LEVEL 1-3 OR FEVER; Start at 04:00 Docusate Sodium (Colace) 100 mg Q12H PRN PO CONSTIPATION; Start 02/24/17 at 04: 00 Bisacodyl (Dulcolax) 5 mg DAILY PRN PO CONSTIPATION; Start 02/24/17 at 04:00 Pantoprazole (Protonix Iv) 40 mg DAILY@06 IV Last administered on 02/26/17 06: 08; Admin Dose 40 MG; Start 02/24/17 at 06:00 Amlodipine Besylate (Norvasc) 10 mg DAILY PO Last administered on 02/26/17 08: 40; Admin Dose 10 MG; Start 02/24/17 at 09:00 Benazepril HCl (Lotensin) 40 mg DAILY PO Last administered on 02/26/17 08:41; Admin Dose 40 MG; Start 02/24/17 at 09:00 Hydralazine HCl (Apresoline) 100 mg Q8 PO Last administered on 02/26/17 06:08 ; Admin Dose 100 MG; Start 02/24/17 at 06:00 Prasugrel (Effient) 10 mg DAILY PO Last administered on 02/26/17 08:39; Admin Dose 10 MG; Start 02/24/17 at 12:00 Spironolactone (Aldactone) 25 mg DAILY PO Last administered on 02/26/17 08:40 ; Admin Dose 25 MG; Start 02/24/17 at 09:00 Diagnostic Test (Pha) (Accu-Chek) 1 ea 02 XX Last administered on 02/26/17 03: 00; Admin Dose 1 EA; Start 02/25/17 at 02:00 Miscellaneous Information 1 ea NOTE XX ; Start 02/24/17 at 07:30 Glucose (Glutose) 15 gm Q15M PRN PO DECREASED GLUCOSE; Start 02/24/17 at 07:30 Glucose (Glutose) 22.5 gm Q15M PRN PO DECREASED GLUCOSE; Start 02/24/17 at 07: 30 Dextrose (D50w Syringe) 25 ml Q15M PRN IV DECREASED GLUCOSE; Start 02/24/17 at 07:30 Dextrose (D50w Syringe) 50 ml Q15M PRN IV DECREASED GLUCOSE; Start 02/24/17 at 07:30 Glucagon (Glucagen) 1 mg Q15M PRN IM DECREASED GLUCOSE; Start 02/24/17 at 07:30 Glucose (Glutose) 15 gm Q15M PRN BUCCAL DECREASED GLUCOSE; Start 02/24/17 at 07 :30 Insulin Glargine (Lantus) 10 unit QHS SC Last administered on 02/25/17 20:42; Admin Dose 10 UNIT; Start 02/24/17 at 21:00 Isosorbide Dinitrate (Isordil) 10 mg TID PO Last administered on 02/25/17 20: 30; Admin Dose 10 MG; Start 02/24/17 at 21:00 Metoprolol Tartrate (Lopressor) 12.5 mg BID PO Last administered on 02/25/17 20:29; Admin Dose 12.5 MG; Start 02/24/17 at 21:00 Furosemide (Lasix) 40 mg DAILY GTB Last administered on 02/26/17 08:39; Admin Dose 40 MG; Start 02/26/17 at 09:00 SUHA MACDONALD Feb 26, 2017 11:07
--- NOTE | 2017-02-26 13:05 | PN ---
Date/Time of Note Date/Time of Note DATE: 02/26/17 TIME: 13:01 Assessment/Plan Lines/Catheters IV Catheter Type (from [facility]): Saline Lock Sunshine in Place (from [facility]): No Assessment/Plan Chief Complaint/Hosp Course -Bilateral lower extremity atherosclerosis with a disabling claudication: It seems the patient may have some component of atherosclerosis; however, it is difficult to ascertain how long the patient has had the symptoms versus worsening over the past month. Further the patient did not describe which limb has more symptoms than the other. The noninvasive vascular studies demonstrated bilateral lower extremity infrainguinal disease. Will schedule patient as an outpt for an angiogram with our cardiology colleagues -Bilateral lower extremity venous insufficiency: It seems the patient has component of venous insufficiency as he does have varicose veins bilaterally in his lower leg. At the moment no current interventions will be needed; however, as an outpatient we will plan to schedule the patient for bilateral lower reflux studies to further delineate if the patient has superficial versus deep venous reflux. -Optimize vascular status (BP medications, nutrition, exercise, sugar control, antiplatelets). -Discussed the findings, plans and management with the patient. He understands that with a certified manager coding. -Thank you for allowing us to partake in the care of your patient.Please call with any questions. Problems: Subjective 24 Hr Interval Summary no new vascular events overnight Exam/Review of Systems Vital Signs Vitals Vital Signs Date Time Temp Pulse Resp B/P Pulse Ox O2 Delivery O2 Flow Rate FiO2 02/26/17 11:30 97.9 76 19 125/85 95 Room Air 02/24/17 07:19 2.0 Intake and Output 02/25/17 02/25/17 02/26/17 15:00 23:00 07:00 Intake Total 350 ml Balance 350 ml Exam Free Text/Dictation Alert and oriented x3. No apparent distress. LUNGS: Clear to auscultation. Bilateral bases with crackles. CVS: S1S2 present ABDOMEN: Soft, nontender and nondistended. Bowel sounds positive. EXTREMITIES: Right lower extremity, palpable femoral pulse, nonpalpable pedal pulse. Motor and sensory intact. Capillary refill 3-4 seconds. Presence of telangiectasias , spider veins and varicose veins. Edema of 1+. Left lower extremity, palpable femoral pulse, nonpalpable pedal pulse. Motor and sensory intact. Capillary refill 3-4 seconds. Presence of telangiectasias, spider veins and varicose veins in the lower leg. Edema of 1+. Results Result Diagram: 02/25/17 0956 02/25/17 0956 MOOSE PENA MD Feb 26, 2017 13:05 MOOSE PENA MD Feb 26, 2017 13:05
[2017-02-26] MEDS ORDERED: FURO40TA4 GTB (13:30)
[2017-02-26] MEDS ORDERED: ISOS30TA5 PO (13:30)
[2017-02-26] MEDS ORDERED: METO25TA7 PO (13:30)
[2017-02-26] MEDS ORDERED: AMLO-147 PO (13:30)
--- NOTE | 2017-02-26 13:33 | PDOCDIS ---
Discharge Instructions DIAGNOSIS Discharge Diagnosis CAD, Claudication CONDITION Patient Condition: Good HOME CARE INSTRUCTIONS: Diet Instructions: Reduced Calorie ACTIVITY: Activity Restrictions: No Restrictions FOLLOW UP/APPOINTMENTS Follow-up Plan Appointment with Dr Zuniga to schedule coronary angiogram Your amlodipine dose has been reduced to 5 mg daily See your new medication list CARMENZA MCPHERSON MD Feb 26, 2017 13:33
--- NOTE | 2017-02-26 13:39 | DS ---
Date/Time of Note Date/Time of Note DATE: 02/26/17 TIME: 13:37 Discharge Summary Admission/Discharge Info Admit Date/Time Feb 24, 2017 at 03:35 Discharge Date/Time Discharge Diagnosis CAD, Claudication Consults Vascular, cardiology Procedures Nuclear stress JHONY Hx of Present Illness Chief complaint: Shortness of breath and weakness This is a 61-year-old male who presents today with shortness of breath and weakness over the last few days. Patient states that he become short of breath and weak after walking short distances. Patient states that he also notices leg swelling and he has tightness of his calves which gets relieved with rest. He does report that he takes his medications however he did not take his water pill over the last 2 days. Based on previous records it does appear the patient may be noncompliant with his medications. He denies any chest pain. Allergies: NKDA Medications: See OCT Hospital Course Underwent NST showing reduced EF without reversability JHONY showed bl vascular insufficiency Patient was scheduled for outpatient angiogram of cors/legs Started on Toprol 25 and Imdur at discharge Home Meds Active Scripts Metoprolol Succinate* (Toprol XL*) 25 Mg Tab.sr.24h, 25 MG PO DAILY for 30 Days , #30 Prov:CARMENZA MCPHERSON MD 02/26/17 Isosorbide Mononitrate* (Isosorbide Mononitrate*) 30 Mg Tab.er.24h, 30 MG PO DAILY for 30 Days, #30 Prov:CARMENZA MCPHERSON MD 02/26/17 Amlodipine Besylate* (Amlodipine Besylate*) 10 Mg Tablet, 5 MG PO DAILY, #30 TAB Prov:CARMENZA MCPHERSON MD 02/26/17 Rivaroxaban* (Xarelto*) 20 Mg Tablet, 20 MG PO WITH DINNER for 30 Days, TAB 11 Refills Prov:COLETTE DUNBAR 06/11/16 Prasugrel Hydrochloride* (Effient*) 10 Mg Tablet, 10 MG PO DAILY for 30 Days, TAB 11 Refills Prov:COLETTE DUNBAR 06/11/16 Metformin Hcl* (Metformin Hcl*) 1,000 Mg Tablet, 1000 MG PO BID WITH MEALS, #30 TAB Prov:COLETTE DUNBAR 06/11/16 Reported Medications Spironolactone* (Aldactone*) 25 Mg Tablet, 25 MG PO DAILY, #30 TAB 02/23/17 Benazepril Hcl* (Benazepril Hcl*) 40 Mg Tablet, 40 MG PO DAILY, #30 TAB 02/23/17 Hydralazine Hcl* (Hydralazine Hcl*) 100 Mg Tablet, 100 MG PO Q8, #90 TAB 02/23/17 Discontinued Reported Medications Hydralazine Hcl* (Hydralazine Hcl*) 50 Mg Tab, 100 MG PO Q8H Y for ELEVATED BLOOD PRESSURE, #120 TAB 06/06/16 Atorvastatin* (Atorvastatin*) 40 Mg Tablet, 40 MG PO QHS, #30 TAB 03/14/16 Ergocalciferol* (Drisdol* (Vitamin D2)) 50,000 Unit Capsule, 04430 UNITS PO, CAP 03/14/16 Nitroglycerin* (Nitrostat*) 0.4 Mg Tab.subl, 0.4 MG SL Q5MIN Y for CHEST PAIN, BOTTLE 12/14/14 Discontinued Scripts Potassium Chloride* (Potassium Chloride*) 8 Meq Capsule.er, 8 MEQ PO DAILY for 30 Days, CAP 3 Refills resume on 06/14 along with Lasix Prov:COLETTE DUNBAR 06/11/16 Furosemide* (Furosemide*) 40 Mg Tablet, 40 MG PO DAILY for 30 Days, TAB 3 Refills resume on Thursday 06/14 Prov:COLETTE DUNBAR 06/11/16 Omeprazole* (Omeprazole*) 40 Mg Capsule.dr, 40 MG PO DAILY, #30 CAP Prov:COLETTE DUNBAR 06/11/16 Levothyroxine Sodium* (Synthroid*) 100 Mcg Tablet, 100 MCG PO AC BREAKFAST for 30 Days, TAB Prov:COLETTE DUNBAR 06/11/16 Benazepril Hcl* (Benazepril Hcl*) 20 Mg Tablet, 20 MG PO DAILY for 30 Days, TAB 3 Refills Prov:COLETTE DUNBAR 03/18/16 Primary Care Provider Not On Staff Doctor Pending Labs Laboratory Tests Test 02/25/17 17:36 02/25/17 20:27 02/26/17 03:32 02/26/17 08:27 Bedside Glucose 173mg/dL (70-220) 202mg/dL (70-220) 110mg/dL (70-220) 78mg/dL (70-220) Test 02/26/17 12:03 Bedside Glucose 102mg/dL (70-220) CARMENZA MCPHERSON MD Feb 26, 2017 13:39
[2017-02-27] MEDS ORDERED: ISOSORBIDE MONONITRATE(SR)30 MG TAB PO SCH (09:00)
[2017-02-27] MEDS ORDERED: AMLODIPINE 5 MG TAB PO SCH (09:00)
[2017-02-27] MEDS ORDERED: METOPROLOL (XL) 25 MG TAB PO SCH (09:00)
[2017-02-27] MEDS ORDERED: AMLODIPINE 10 MG TAB PO SCH (09:00)
--- NOTE | 2017-02-27 13:42 | CARRPT ---
DATE OF PROCEDURE: 02/25/2017 PROCEDURE: February 25, 2017. INDICATION: Chest pain. Assess for ischemia. BASELINE VITAL SIGNS OF ELECTROCARDIOGRAM: Pulse of 55, blood pressure 124/68. Electrocardiogram reveals sinus bradycardia, 55, with a right bundle branch block, secondary repolarization abnormalities, lateral T wave inversion. PROCEDURE: The patient underwent standard Lexiscan infusion protocol for 10 seconds followed by a regular chaser. Patient's test stopped due to completion of protocol. Maximal achieved blood pressure during the test 130/69. Maximum heart rate during the test was 82. ECG FINDINGS: The patient did not develop any new Lexiscan induced ST wave changes or baseline abnormalities. Occasional PACs and PVCs. SYMPTOMS: The patient had complaints of chest pain during stress test. Resolved in recovery. IMPRESSION: 1. No Lexiscan induced ST wave changes from baseline radiology diagnostic for cardiac ischemia. 2. Positive complaints of chest pain and shortness of breath during stress test. Resolved during recovery. 3. Rare PVCs during stress test. 4. Report of new nuclear images to follow on separate dictation. Dictated By: Karine Luna /fnt/grs /Document#: [id number] CC: Jose Mansfield MD;*EndCC*
--- NOTE | 2017-03-03 08:30 | CONS ---
DATE OF ADMISSION: 02/24/2017 DATE OF CONSULTATION: 02/24/2017 REASON FOR CONSULTATION: Chest pain, assess acute cardiac syndrome. REQUESTING PHYSICIAN: . HISTORY OF PRESENT ILLNESS: Mr. Chen is 61-year-old male with a history of atrial fibrillation, cardiomyopathy with mildly depressed elevation of systolic function. approximately 45%. and stent placements with most recent one here at [facility] bradycardia, congestive heart failure, who presents today with complaints of generalized weakness, substernal chest pain and leg pain, worse with ambulation. Both chest and leg pain improved with resting. Upon arrival in the emergency department, temperature 99.5, blood pressure 127/60, pulse 89, respirations 15, O2 saturation 96%. The patient's lab showed 6.4, hemoglobin 11.0, platelet count of 256. Sodium 145, potassium 4.1, creatinine 1.44, BUN 32, BMT , troponin negative. INR 2.1. UA negative. The patient underwent a chest x-ray revealing mild congestive heart failure. Venous ultrasound revealed no evidence of DVT involving either lower extremity. An arterial ultrasound revealing the right JHONY 0.94, left JHONY 0.94. with significant stenosis. In the setting of stenosis, the mid left SFA with flow with significant stenosis. The patient at this time has been admitted to the floor and since admitted to the floor has had two negative troponins. The patient does have some ongoing chest pain. PAST MEDICAL HISTORY: As per the history of present illness. MEDICATION: Currently in the hospital. Lantus with dinner, 10 mg a day, Norvasc 10 mg a day, benazepril , Aldactone 25 mg daily, Lasix 400 mg IV b.i.d., insulin sliding scale, Protonix 4 mg b.i.d., hydralazine 100 mg p.o. q. 8. ALLERGIES: NO KNOWN DRUG ALLERGIES. SOCIAL HISTORY: No current tobacco, ETOH, no illicit drug use. FAMILY HISTORY: No history of sudden cardiac or early CD. REVIEW OF SYSTEMS: CONSTITUTIONAL: No fevers or chills. PULMONARY: Shortness of breath. CARDIOVASCULAR: Chest pain. GASTROINTESTINAL: No vomiting. GENITOURINARY: No hematuria. MUSCULOSKELETAL: No joint effusion. PSYCHIATRIC: The patient has depression. NEUROLOGIC: No documented CVA. PHYSICAL EXAMINATION: VITAL SIGNS: Temperature 99.5, blood pressure 123/65, pulse 60, respirations 18, O2 saturation 96%. GENERAL: The patient is alert and awake in no acute distress. NECK: JVP approximately . CHEST: throughout, with mildly decreased breath sounds at the bases bilaterally. HEART: Regular rate and rhythm. Normal S1, S2. 1/6 systolic ejection murmur. ABDOMEN: Positive bowel sounds. EXTREMITIES: No pitting edema. Somewhat difficult to palpate pulses in parts of the tibia. Positive palpable pulses dorsalis pedis. LABORATORY: From today, sodium 245, potassium of 2.9, creatinine 1.2, 29, LDL 143, HDL 19. White count 4.2, hemoglobin 9.6, platelet count of 214. IMAGING STUDIES: As per the history of present illness. ECG. 84, right block secondary to abnormalities. IMPRESSION: 1. Chest pain. Assess for acute coronary syndrome. 2. Leg pain concerning for claudication. 3. Peripheral arterial disease by ultrasound. 4. Hypertension. 5. Dyslipidemia with significantly elevated LDL. 6. History of PTS stent placement, most recently to LAD March 2016. 7. Cardiomyopathy with mild depressed left . 8. . 9. Renal failure. 10. Coagulopathy. RECOMMENDATIONS: 1. At this time, we would maintain the patient on monitoring, to follow rhythm and rates closely. 2. We will check EKG to assess the rates changes. EKG in the morning to assess for change in rhythm. 3. We will reassess patient's ejection fracture with 2D echo. 4. We will continue patient's current Xarelto and at this time. We will discontinue patient's Norvasc and benazepril and follow blood pressure closely. 5. Continue patient's Lasix diuresis. creatinine diuresis. 6. . Thank you for allowing me to take part in the care of this patient. I will continue to hospital course. Dictated By: Karine Luna /rain/ /Document#: [id number]
--- NOTE | 2017-03-03 14:38 | ERA ---
DATE OF SERVICE: 02/24/2017 HISTORY OF PRESENT ILLNESS: This 61-year-old male presents to the emergency room with shortness of breath, occasional chest pain, generalized weakness and a feeling of palpitations. These symptoms had been going on for the last few days. With the use of a bedside Turkish nurses supervisor, he is not an excellent historian. He does seem to initiate that he has had an irregular heartbeat, although he does not know what it was called. He was also taking a medication to thin his blood which he does not know the name of. Chest pain comes and goes, as well as the palpitations. He has been feeling short of breath for some time. He also complained of some bilateral leg pain. REVIEW OF SYSTEMS: A 10-point review of systems negative except as in HPI. PAST MEDICAL HISTORY: Irregular heartbeat. PAST SURGICAL HISTORY: Denied. FAMILY HISTORY: He says he had a grandfather who of heart problems. SOCIAL HISTORY: He denies smoking cigarettes. Drinks alcohol only occasionally. PHYSICAL EXAMINATION: VITAL SIGNS: Temperature 99.5, pulse 89, respiratory rate 15, blood pressure 127/63, pulse ox 96 percent on room air. GENERAL: No acute distress. HEENT: Normocephalic, atraumatic. NECK: Supple, no JVD. CARDIAC: Irregularly irregular with no murmurs. LUNGS: Decreased bibasilar breath sounds. ABDOMEN: Soft, nontender, not distended with no masses. EXTREMITIES: No cyanosis, clubbing or edema. SKIN: No rashes or lesions. NEUROLOGIC: Alert and oriented x3, no focal deficits. DIAGNOSTIC DATA: EKG number 1 interpretation: Sinus rhythm with PACs, rate 84, normal axis, normal intervals, no ST or T wave change concerning for acute ischemia. EKG number 2 interpretation: Atrial fibrillation rate of 162, indeterminate axis, no ST or T wave changes concerning for acute ischemia. LABORATORY DATA: CBC significant for normocytic anemia with hemoglobin 11. BMP within normal limits except for a BUN 32 and creatinine 1.44. BNP is significantly elevated at 2700, troponin 0.038. Coagulation studies show a therapeutic INR of 2.14. Urinalysis is negative for acute infection. Chest x-ray shows increased pulmonary vascular congestion consistent with mild heart failure, no pneumothorax, no infiltrates, no bony abnormalities. EMERGENCY DEPARTMENT COURSE AND MEDICAL DECISION MAKING: A 61- year-old male with congestive heart failure likely secondary to his paroxysmal atrial fibrillation which goes into rapid ventricular response up to a rate of 162. He was given aspirin in the emergency room as well as 5 mg of IV metoprolol for the rapid ventricular response. We also gave a small amount of normal saline because the heart rate was still high and he had an elevated BNP indicating possible dehydration, which would worsen his paroxysmal atrial fibrillation. He was also given 40 mg Lasix. He will need to be admitted for further management of the RVR and possible medication adjustment. I have no suspicion for aortic dissection currently. I spoke with Dr. Mansfield who will be admitting to telemetry. ADMISSION DIAGNOSES: 1. Atrial fibrillation with rapid ventricular response. 2. Congestive heart failure. 3. Exertional dyspnea. 4. Leg claudication. DISPOSITION: Admitted in serious condition. Dictated By: Roly Castillo DO /rain/rosalind /Document#: [id number]
== END 2017-02-26 15:30 | disposition home or self-care (01) | DRG 291 ==
LOC: E/R 17:34 → MS4 02-24 03:35
PROVIDERS: ADMIT Family Medicine; ATTEND Family Medicine
DX: I13.0 Hypertensive heart and chronic kidney disease with heart failure and stage 1 through stage 4 chronic kidney disease, or unspecified chronic kidney disease (principal); I50.23 Acute on chronic systolic (congestive) heart failure; N17.9 Acute kidney failure, unspecified; D68.9 Coagulation defect, unspecified; E11.22 Type 2 diabetes mellitus with diabetic chronic kidney disease; E11.51 Type 2 diabetes mellitus with diabetic peripheral angiopathy without gangrene; N18.9 Chronic kidney disease, unspecified; E78.5 Hyperlipidemia, unspecified; E03.9 Hypothyroidism, unspecified; I48.2 Chronic atrial fibrillation; I48.0 Paroxysmal atrial fibrillation; I25.10 Atherosclerotic heart disease of native coronary artery without angina pectoris; K21.9 Gastro-esophageal reflux disease without esophagitis; I70.213 Atherosclerosis of native arteries of extremities with intermittent claudication, bilateral legs; I87.2 Venous insufficiency (chronic) (peripheral); I42.9 Cardiomyopathy, unspecified; R00.1 Bradycardia, unspecified; Z82.49 Family history of ischemic heart disease and other diseases of the circulatory system; Z95.5 Presence of coronary angioplasty implant and graft
CPT/HCPCS: 71010; 78452; 80048; 80053; 80061; 81003; 82550; 82553; 82728; 82962; 83036; 83540; 83735; 83880; 84443; 84484; 85025; 85610; 85730; 93005; 93017; 93306; 93922; 93970; A9500; A9505; C9113; J1815; J1940; J2785; J7040

== ENCOUNTER 2017-04-16 20:52 | Inpatient (IN) | payer MEDICARE, OTHER ==
[~2017-04-16] VITALS: Ht 165.1 cm; Wt 87.0 kg
[~2017-04-16 20:52] MED LIST changes: +AMLO-147 PO; -ATOR40TA68 PO; -BENA20TA48 PO; +BENA40TA41 PO; -ERGO500014 PO; -FURO40TA4 PO; -HYDR-3672 PO; +HYDR100T25 PO; +ISOS30TA5 PO; +METO-335 PO; -NIT4 SL; -OMEP40CA6 PO; -POTA8CAP PO; +SPIR25TA PO; -SYN1 PO
--- NOTE | 2017-04-16 21:44 | ERA ---
ER Documentation Chief Complaint Date/Time DATE: 04/16/17 TIME: 21:44 Chief Complaint SHORTNESS OF BREATH, FEELS WEAK, CHEST PAIN HPI 62-year-old male with a history of coronary artery disease status post multiple PCI's, ischemic cardiomyopathy, congestive heart failure, diabetes mellitus type 2, hypertension, hypothyroidism, hyperlipidemia and paroxysmal atrial fibrillation presents to the ED complaining of a 2 day history of worsening exertional weakness and dyspnea with intermittent palpitations today. Denies chest pain or abdominal pain. No nausea, vomiting or diaphoresis. Mild leg swelling but no calf pain. No relieving or no other relieving or exacerbating factors. No fevers or chills. ROS All systems reviewed and are negative except as per history of present illness. Medications Home Meds Active Scripts Metoprolol Succinate* (Toprol XL*) 25 Mg Tab.sr.24h, 25 MG PO DAILY for 30 Days , #30 Prov:CARMENZA MCPHERSON MD 02/26/17 Isosorbide Mononitrate* (Isosorbide Mononitrate*) 30 Mg Tab.er.24h, 30 MG PO DAILY for 30 Days, #30 Prov:CARMENZA MCPHERSON MD 02/26/17 Amlodipine Besylate* (Amlodipine Besylate*) 10 Mg Tablet, 5 MG PO DAILY, #30 TAB Prov:CARMENZA MCPHERSON MD 02/26/17 Rivaroxaban* (Xarelto*) 20 Mg Tablet, 20 MG PO WITH DINNER for 30 Days, TAB 11 Refills Prov:COLETTE DUNBAR 06/11/16 Prasugrel Hydrochloride* (Effient*) 10 Mg Tablet, 10 MG PO DAILY for 30 Days, TAB 11 Refills Prov:COLETTE DUNBAR 06/11/16 Metformin Hcl* (Metformin Hcl*) 1,000 Mg Tablet, 1000 MG PO BID WITH MEALS, #30 TAB Prov:COLETTE DUNBAR 06/11/16 Reported Medications Furosemide* (Furosemide*) 40 Mg Tablet, 40 MG PO DAILY, TAB 04/17/17 Spironolactone* (Aldactone*) 25 Mg Tablet, 25 MG PO DAILY, #30 TAB 02/23/17 Benazepril Hcl* (Benazepril Hcl*) 40 Mg Tablet, 40 MG PO DAILY, #30 TAB 02/23/17 Hydralazine Hcl* (Hydralazine Hcl*) 100 Mg Tablet, 100 MG PO Q8, #90 TAB 02/23/17 Allergies Allergies: Coded Allergies: No Known Allergies (Verified Allergy, Unknown, 02/26/17) PMhx/Soc Reviewed in chart. As per HPI. Lives with family. History of Surgery: Yes (multiple stent placement/angiogram) Anesthesia Reaction: No Hx Neurological Disorder: No Hx Respiratory Disorders: No Hx Cardiac Disorders: Yes (cad, svt/afib paroxysmal, htn, hlp) Hx Psychiatric Problems: No Hx Miscellaneous Medical Probl: No Hx Alcohol Use: Yes (occassional) Hx Substance Use: No Hx Tobacco Use: No Smoking Status: Never smoker FmHx No stroke or cancer. Physical Exam Vitals Vital Signs Date Time Temp Pulse Resp B/P Pulse Ox O2 Delivery O2 Flow Rate FiO2 04/16/17 21:09 99.4 126 26 140/99 92 Physical Exam Const: Alert, moderate distress. Head: Atraumatic Eyes: Normal Conjunctiva ENT: Normal External Ears, Nose and Mouth. Neck: Full range of motion.JVD. Resp: Breath sounds diminished bilaterally with crackles at the bases. No wheezing. Cardio: Tachycardic. Irregular rate and rhythm, no murmurs Abd: Soft, non tender, non distended. Normal bowel sounds Skin: No petechiae or rashes Back: No midline or flank tenderness Ext: No cyanosis. 1+ edema. Neur: Awake and alert Psych: Normal Mood and Affect Result Diagram: 04/17/17 0312 04/17/17 0312 Results 24 hrs Laboratory Tests Test 04/16/17 21:34 White Blood Count 9.010^3/ul Red Blood Count 4.6310^6/ul Hemoglobin 13.1g/dl Hematocrit 41.1% Mean Corpuscular Volume 88.8fl Mean Corpuscular Hemoglobin 28.3pg Mean Corpuscular Hemoglobin Concent 31.9g/dl Red Cell Distribution Width 14.6% Platelet Count 73017^3/UL Mean Platelet Volume 11.1fl Neutrophils % 87.5% Lymphocytes % 5.8% Monocytes % 5.8% Eosinophils % 0.0% Basophils % 0.2% Nucleated Red Blood Cells % 0.0/100WBC Neutrophils # 7.910^3/ul Lymphocytes # 0.510^3/ul Monocytes # 0.510^3/ul Eosinophils # 0.010^3/ul Basophils # 0.010^3/ul Nucleated Red Blood Cells # 0.010^3/ul Sodium Level 137mmol/L Potassium Level 4.6mmol/L Chloride Level 97mmol/L Carbon Dioxide Level 27mmol/L Anion Gap 18 Blood Urea Nitrogen 24mg/dl Creatinine 1.37mg/dl Glucose Level 150mg/dl Calcium Level 10.1mg/dl Magnesium Level 2.1mg/dl Total Bilirubin 0.6mg/dl Direct Bilirubin 0.00mg/dl Indirect Bilirubin 0.6mg/dl Aspartate Amino Transf (AST/SGOT) 46IU/L Alanine Aminotransferase (ALT/SGPT) 87IU/L Alkaline Phosphatase 154IU/L Troponin I 0.050ng/ml B-Type Natriuretic Peptide 94225HE/ML Total Protein 8.9g/dl Albumin 5.0g/dl Globulin 3.90g/dl Albumin/Globulin Ratio 1.28 Current Medications Medications (Trade) Dose Ordered Sig/Jovani Route PRN Reason Start Time Stop Time Status Last Admin Dose Admin Diltiazem HCl (Cardizem Iv) 20 mg ONCE ONCE IV 04/16/17 22:00 04/16/17 22:01 DC 04/16/17 21:56 Furosemide 40 mg 40 mg ONCE ONCE IV 04/16/17 22:30 04/16/17 22:31 DC 04/16/17 22:49 Diltiazem HCl (Cardizem-D5W 125 Mg/125 ml Drip) 125 ml @ 10 mls/hr [id number] IV 04/16/17 23:00 04/17/17 02:06 DC 04/16/17 23:20 Ordering MD: OFELIA EDGAR MD Location: E/R Room/Bed: PROCEDURE: XR Chest. CLINICAL INDICATION: Chest pain. TECHNIQUE: Single frontal view of the chest COMPARISON: 06/11/2016 FINDINGS: Cardiomegaly. Pulmonary mass congestion and bilateral patchy air space disease. No signs of pleural fluid or pneumothorax are seen. The osseous structures and soft tissues are unremarkable. IMPRESSION: Cardiomegaly and mild failure. RPTAT: [facility] Physician Theresa Date Time Electronically viewed and signed by Physician Theresa on 04/16/2017 22:11 RS/ EKG: Time: EKG: Time: Procedures/MDM DOCUMENTS REVIEWED: ED nurse, prior ED, prior records ED COURSE: Diltiazem 20 mg IV. Diltiazem drip at 10 mg/h. Lasix 40 mg IV. REEXAMINATION/REEVALUATION: Time: 22:30. Improved. Still in AFib. Rate 96. MEDICAL DECISION MAKIN-year-old male with a history of coronary artery disease status post multiple PCI's, ischemic cardiomyopathy, congestive heart failure, diabetes mellitus type 2, hypertension, hypothyroidism, hyperlipidemia and paroxysmal atrial fibrillation ambulatory to the ED complaining of a 2 day history of worsening exertional weakness and dyspnea with intermittent palpitations today. Patient presents with atrial fibrillation with RVR and rate control achieved with diltiazem bolus and drip. Already on skilled nursing anticoagulation. No acute ischemic EKG changes, elevated troponin, chest pain or other signs of acute coronary syndrome. Congestive heart failure but no pulmonary edema or respiratory failure. IV diuretics given. Admit to telemetry. CRITICAL CARE TIME: Due to the high probability of sudden clinically significant respiratory, hemodynamic and cardiovascular deterioration, this patient with atrial fibrillation with rapid ventricular response and congestive heart failure required multiple, frequent reevaluations of vital signs and response to therapy. Additional critical care time was spent in interpretation of relevant clinical data, obtaining supplemental history from family, extensive review of previous medical records and arranging for ongoing care and admission with Dr Cortes TOTAL CRITICAL CARE TIME: 35 minutes not including other separately reportable procedures. Counseled patient and family regarding diagnosis, diagnostic results and plan for admission. CALLS/CONSULTS: Time 22:50, Dr. Cortes. PATIENT CARE TRANSITIONED: Time: 22:55, Dr. Cortes. Departure Diagnosis: Primary Impression: Shortness of breath Additional Impressions: Atrial fibrillation with rapid ventricular response Congestive heart failure Qualified Code: I50.9 - Acute congestive heart failure, unspecified congestive heart failure type Presence of stent in coronary artery in patient with coronary artery disease Condition: Serious OFELIA EDGAR MD Apr 16, 2017 21:44
[2017-04-16 21:50] LABS: ABNORMAL IP MESSAGE 1; BASOPHILS % 0.2 % (0.0-2.0); HEMATOCRIT 41.1 % (42.0-52.0); HEMOGLOBIN 13.1 g/dl (14.0-18.0); LYMPHOCYTES # 0.5 10^3/ul (0.8-2.9); LYMPHOCYTES % 5.8 % (15.0-51.0); MEAN CORPUSCULAR HEMOGLOBIN 28.3 pg (29.0-33.0); MEAN CORPUSCULAR HGB CONC 31.9 g/dl (32.0-37.0); MEAN CORPUSCULAR VOLUME 88.8 fl (82.0-101.0); MEAN PLATELET VOLUME 11.1 fl (7.4-10.4); MONOCYTE # 0.5 10^3/ul (0.3-0.9); MONOCYTES % 5.8 % (0.0-11.0); NEUTROPHIL # 7.9 10^3/ul (1.6-7.5); NEUTROPHILS % 87.5 % (39.0-77.0); PLATELET COUNT 199 10^3/UL (140-415); POSITIVE DIFF @See below; RED BLOOD COUNT 4.63 10^6/ul (4.70-6.10); RED CELL DISTRIBUTION WIDTH 14.6 % (11.5-14.5)
[2017-04-16] MEDS ORDERED: DILTIAZEM 25 MG INJ IV ONE (22:00)
[2017-04-16 22:11] LABS: ALBUMIN/GLOBULIN RATIO 1.28; BILIRUBIN,INDIRECT 0.6 mg/dl (0-1.1); BILIRUBIN,TOTAL 0.6 mg/dl (0.2-1.3); CALCIUM 10.1 mg/dl (8.4-10.2); CREATININE 1.37 mg/dl (0.61-1.24); MAGNESIUM 2.1 mg/dl (1.7-2.5); POTASSIUM 4.6 mmol/L (3.5-5.1); TOTAL PROTEIN 8.9 g/dl (6.1-8.1)
--- NOTE | 2017-04-16 22:11 | RADRPT ---
PROCEDURE: XR Chest. CLINICAL INDICATION: Chest pain. TECHNIQUE: Single frontal view of the chest COMPARISON: 06/11/2016 FINDINGS: Cardiomegaly. Pulmonary mass congestion and bilateral patchy air space disease. No signs of pleural fluid or pneumothorax are seen. The osseous structures and soft tissues are unremarkable. IMPRESSION: Cardiomegaly and mild failure. RPTAT: [facility] Physician Theresa Date Time Electronically viewed and signed by Physician Theresa on 04/16/2017 22:11 RS/
[2017-04-16 22:24] LABS: TROPONIN-I 0.05 ng/ml (0.00-0.12)
[2017-04-16] MEDS ORDERED: FUROSEMIDE 40 MG INJ IV ONE (22:30)
[2017-04-16] MEDS ORDERED: DILTIAZEM-D5W 125MG/125ML DRIP 125 ML IV SCH (23:00)
[2017-04-16 23:28] VITALS: TEMP 98.7
[2017-04-16] MEDS ORDERED: ONDANSETRON 4 MG INJ IV PRN (23:30)
[2017-04-16] MEDS ORDERED: ACETAMINOPHEN 325 MG TAB PO PRN (23:30)
[2017-04-16 23:50] VITALS: Ht 165.1 cm; Wt 87.0 kg
[2017-04-17] VITALS (13 sets, daily range): BP systolic 99–150; BP diastolic 52–92; PULSE 48–103; RESP 18–20
[2017-04-17] MEDS ORDERED: FURO40TA4 PO (00:11)
[2017-04-17] MEDS ORDERED: DILTIAZEM-D5W 125MG/125ML DRIP 125 ML IV SCH (02:00)
[2017-04-17] MEDS ORDERED: NITROGLYCERIN (SL) 0.4 MG TAB SL PRN (02:00)
[2017-04-17] MEDS ORDERED: morphine 2 MG INJ IV PRN (02:00)
[2017-04-17] MEDS ORDERED: NACL 0.9% 3 ML SYG IV SCH (02:00)
[2017-04-17] MEDS ORDERED: ACETAMINOPHEN 325 MG TAB PO PRN (02:00)
[2017-04-17] MEDS ORDERED: ONDANSETRON 4 MG INJ IV PRN (02:00)
[2017-04-17 03:25] LABS: ABNORMAL IP MESSAGE 1; BASOPHILS % 0.2 % (0.0-2.0); HEMATOCRIT 34.7 % (42.0-52.0); HEMOGLOBIN 11.2 g/dl (14.0-18.0); LYMPHOCYTES # 0.6 10^3/ul (0.8-2.9); LYMPHOCYTES % 8.8 % (15.0-51.0); MEAN CORPUSCULAR HEMOGLOBIN 28.6 pg (29.0-33.0); MEAN CORPUSCULAR HGB CONC 32.3 g/dl (32.0-37.0); MEAN CORPUSCULAR VOLUME 88.5 fl (82.0-101.0); MEAN PLATELET VOLUME 10.6 fl (7.4-10.4); MONOCYTE # 0.6 10^3/ul (0.3-0.9); MONOCYTES % 9.3 % (0.0-11.0); NEUTROPHIL # 5.3 10^3/ul (1.6-7.5); NEUTROPHILS % 81.2 % (39.0-77.0); PLATELET COUNT 163 10^3/UL (140-415); POSITIVE DIFF @See below; RED BLOOD COUNT 3.92 10^6/ul (4.70-6.10); RED CELL DISTRIBUTION WIDTH 14.6 % (11.5-14.5); WHITE BLOOD COUNT 6.6 10^3/ul (4.8-10.8)
[2017-04-17 03:52] LABS: ALBUMIN 4.4 g/dl (3.3-4.9); ALBUMIN/GLOBULIN RATIO 1.29; BILIRUBIN,INDIRECT 0.7 mg/dl (0-1.1); BILIRUBIN,TOTAL 0.7 mg/dl (0.2-1.3); CALCIUM 9.5 mg/dl (8.4-10.2); CREATININE 1.33 mg/dl (0.61-1.24); MAGNESIUM 1.9 mg/dl (1.7-2.5); POTASSIUM 4.2 mmol/L (3.5-5.1); TOTAL PROTEIN 7.8 g/dl (6.1-8.1)
[2017-04-17 04:01] LABS: TROPONIN-I 0.097 ng/ml (0.00-0.12)
[2017-04-17 04:06] LABS: CK-MB 1.28 ng/ml (0.0-2.4)
[2017-04-17] MEDS: FUROSEMIDE 40 MG TAB PO SCH (05:15)
--- NOTE | 2017-04-17 07:17 | HP ---
Date/Time of Note Date/Time of Note DATE: 04/17/17 TIME: 07:09 Assessment/Plan VTE Prophylaxis VTE Prophylaxis Intervention: other (Xarelto) Lines/Catheters IV Catheter Type (from [facility], [place]): Peripheral IV Urinary Cath still in place: No Assessment/Plan Assessment/Plan ASSESSMENT 62-year-old male with a history of coronary artery disease status post multiple PCI's, ischemic cardiomyopathy, congestive heart failure, diabetes mellitus type 2, hypertension, hypothyroidism, hyperlipidemia and paroxysmal atrial fibrillation presented to the ER with the palpitation and shortness of breath and found to be in rapid A. fib PLAN -Patient has been started on Cardizem drip in the ER, which will be continued. -Will continue her cardiac medications which include beta-miriam. Will also continue Xarelto -Patient with recent nuclear stress test from 6 weeks ago showed a new moderate- sized nonreversible perfusion defect involving the anteroapical, distal to mid anterior and distal to mid anteroseptal baldwin, moderate hypokinesis. Plan upon discharge at that time seems like outpatient cardiac cath. - Cardiology consult will be placed HPI/ROS Admit Date/Time Admit Date/Time Apr 16, 2017 at 23:17 Hx of Present Illness This is a 62-year-old male with a history of coronary artery disease status post multiple PCI's, ischemic cardiomyopathy, congestive heart failure, diabetes mellitus type 2, hypertension, hypothyroidism, hyperlipidemia and paroxysmal atrial fibrillation presents to the ED complaining of a 2 day history of worsening exertional weakness and dyspnea with intermittent palpitations. Denied chest pain. Patient was admitted here about 6 weeks ago and at that time, nuclear stress test showed a new moderate-sized nonreversible perfusion defect involving the anteroapical, distal to mid anterior and distal to mid anteroseptal baldwin, moderate hypokinesis of the left ventricle with EF of 36%. 2D echo showed an EF of 35-40%. Plan was for an outpatient cardiac cath. When she presented to the ER tonight, she was found to be in rapid A. fib. First troponin is negative. Notes that patient not complaining of chest pain. . PMH/Family/Social Past Medical History coronary artery disease status post multiple PCI's, ischemic cardiomyopathy, congestive heart failure, diabetes mellitus type 2, hypertension, hypothyroidism , hyperlipidemia and paroxysmal atrial fibrillation Social History Alcohol Use: none Smoking Status: Never smoker Drug Use: none Exam/Review of Systems Vital Signs Vitals Vital Signs Date Time Temp Pulse Resp B/P Pulse Ox O2 Delivery O2 Flow Rate FiO2 04/17/17 05:56 48 04/17/17 04:12 99.0 20 123/83 93 04/17/17 00:33 Nasal Cannula 2.0 Intake and Output 04/16/17 04/16/17 04/17/17 15:00 23:00 07:00 Intake Total 500 ml Balance 500 ml Exam Constitutional: alert, oriented, well developed Head: atraumatic, normocephalic Eyes: EOMI, PERRL Respiratory: clear to auscultation Cardiovascular: irregular rhythm Gastrointestinal: non-tender, soft Extremities: other (Lower extremities with venous stasis changes) Labs Result Diagram: 04/17/1731104/17/17311 Medications Medications Current Medications Ondansetron HCl (Zofran Inj) 4 mg Q6H PRN IV NAUSEA AND/OR VOMITING; Start at 02:00 Nitroglycerin (Nitroglycerin (Sl Tab) 0.4 Mg) 1 tab Q5M PRN SL CHEST PAIN; Start 04/17/17 at 02:00 Acetaminophen (Tylenol Tab) 650 mg Q6H PRN PO PAIN LEVEL 1-3 OR FEVER; Start at 02:00 Morphine Sulfate (morphine) 2 mg Q4H PRN IV PAIN LEVEL 7-10; Start 04/17/17 at 02:00 Amlodipine Besylate (Norvasc) 5 mg DAILY PO ; Start 04/17/17 at 09:00 Benazepril HCl (Lotensin) 40 mg DAILY PO ; Start 04/17/17 at 09:00 Furosemide (Lasix) 40 mg DAILY@06 PO Last administered on 04/17/17t 05:15; Admin Dose 40 MG; Start 04/17/17 at 06:00 Isosorbide Mononitrate (Imdur) 30 mg DAILY PO ; Start 04/17/17 at 09:00 Metoprolol Succinate (Toprol Xl) 25 mg DAILY PO ; Start 04/17/17 at 09:00 Prasugrel (Effient) 10 mg DAILY PO ; Start 04/17/17 at 09:00 Spironolactone 25 mg 25 mg DAILY PO ; Start 04/17/17 at 09:00 Diltiazem HCl (Cardizem-D5W 125 Mg/125 ml Drip) 125 ml @ 5 mls/hr TITRATE IV Last administered on 04/17/17t 02:46; Admin Dose 5 MLS/HR; Start 04/17/17 at 02: 00 SHIVANI CESPEDES MD Apr 17, 2017 07:17
[2017-04-17] MEDS: ISOSORBIDE MONONITRATE(SR)30 MG TAB PO SCH ×2 (08:12→09:30)
[2017-04-17] MEDS: METOPROLOL (XL) 25 MG TAB PO SCH ×2 (08:13→09:27)
[2017-04-17] MEDS: AMLODIPINE 10 MG TAB PO SCH ×2 (08:14→09:29)
[2017-04-17] MEDS: BENAZEPRIL 40 MG TAB PO SCH ×2 (08:15→09:30)
[2017-04-17] MEDS ORDERED: HEPARIN 5,000 UNIT/0.5 ML VIAL SC SCH (09:00)
[2017-04-17] MEDS: metFORMIN 500 MG TAB PO SCH ×2 (09:28→17:27)
[2017-04-17] MEDS: PRASUGREL HYDROCHLORIDE 10 MG TABLET PO SCH (09:29)
[2017-04-17] MEDS: SPIRONOLACTONE 25 MG TAB PO SCH (09:30)
[2017-04-17 10:20] LABS: TROPONIN-I 0.081 ng/ml (0.00-0.12)
[2017-04-17 10:24] LABS: CK-MB 1.52 ng/ml (0.0-2.4)
--- NOTE | 2017-04-17 15:21 | CONS ---
Date/Time of Note Date/Time of Note DATE: 04/17/17 TIME: 15:20 Assessment/Plan Assessment/Plan Additional Assessment/Plan [address] Zuniga with a. fib and RVR - better now, on Xarelto - f/up with DR. Zuniga post d/c. Full note dictated # [id number] thank you Consultation Date/Type/Reason Admit Date/Time Apr 16, 2017 at 23:17 Initial Consult Date Exam/Review of Systems Vital Signs Vitals Vital Signs Date Time Temp Pulse Resp B/P Pulse Ox O2 Delivery O2 Flow Rate FiO2 04/17/17 13:13 58 04/17/17 11:53 97.9 18 99/60 95 04/17/17 08:00 Nasal Cannula 2.0 Intake and Output 04/16/17 04/16/17 04/17/17 15:00 23:00 07:00 Intake Total 500 ml Balance 500 ml Results Result Diagram: 04/17/17 0312 04/17/17 0312 Results 24 hrs Laboratory Tests Test 04/16/17 21:34 04/17/17 03:12 04/17/17 09:28 04/17/17 09:32 White Blood Count 9.0 # 6.6 # Red Blood Count 4.63 #L 3.92 L Hemoglobin 13.1 #L 11.2 L Hematocrit 41.1 #L 34.7 L Mean Corpuscular Volume 88.8 88.5 Mean Corpuscular Hemoglobin 28.3 L 28.6 L Mean Corpuscular Hemoglobin Concent 31.9 L 32.3 Red Cell Distribution Width 14.6 H 14.6 H Platelet Count 199 # 163 Mean Platelet Volume 11.1 H 10.6 H Neutrophils % 87.5 H 81.2 H Lymphocytes % 5.8 L 8.8 L Monocytes % 5.8 9.3 Eosinophils % 0.0 0.0 Basophils % 0.2 0.2 Nucleated Red Blood Cells % 0.0 0.0 Neutrophils # 7.9 H 5.3 Lymphocytes # 0.5 L 0.6 L Monocytes # 0.5 0.6 Eosinophils # 0.0 0.0 Basophils # 0.0 0.0 Nucleated Red Blood Cells # 0.0 0.0 Sodium Level 137 139 Potassium Level 4.6 4.2 Chloride Level 97 100 Carbon Dioxide Level 27 26 Anion Gap 18 H 17 H Blood Urea Nitrogen 24 H 25 H Creatinine 1.37 H 1.33 H Glucose Level 150 153 Calcium Level 10.1 9.5 Magnesium Level 2.1 1.9 Total Bilirubin 0.6 0.7 Direct Bilirubin 0.00 0.00 Indirect Bilirubin 0.6 0.7 Aspartate Amino Transf (AST/SGOT) 46 32 Alanine Aminotransferase (ALT/SGPT) 87 H 74 H Alkaline Phosphatase 154 H 128 H Troponin I 0.050 0.097 0.081 B-Type Natriuretic Peptide 94496 H Total Protein 8.9 H 7.8 # Albumin 5.0 H 4.4 Globulin 3.90 H 3.40 H Albumin/Globulin Ratio 1.28 1.29 Creatine Kinase 55 47 Creatine Kinase Index 2.3 3.2 Creatinine Kinase MB (Mass) 1.28 1.52 Bedside Glucose 93 Medications Medications Current Medications Ondansetron HCl (Zofran Inj) 4 mg Q6H PRN IV NAUSEA AND/OR VOMITING; Start at 02:00 Nitroglycerin (Nitroglycerin (Sl Tab) 0.4 Mg) 1 tab Q5M PRN SL CHEST PAIN; Start 04/17/17 at 02:00 Acetaminophen (Tylenol Tab) 650 mg Q6H PRN PO PAIN LEVEL 1-3 OR FEVER; Start at 02:00 Morphine Sulfate (morphine) 2 mg Q4H PRN IV PAIN LEVEL 7-10; Start 04/17/17 at 02:00 Amlodipine Besylate (Norvasc) 5 mg DAILY PO Last administered on 04/17/17 09: 29; Admin Dose 5 MG; Start 04/17/17 at 09:00 Benazepril HCl (Lotensin) 40 mg DAILY PO Last administered on 04/17/17 09:30; Admin Dose 40 MG; Start 04/17/17 at 09:00 Furosemide (Lasix) 40 mg DAILY@06 PO Last administered on 04/17/17 05:15; Admin Dose 40 MG; Start 04/17/17 at 06:00 Isosorbide Mononitrate (Imdur) 30 mg DAILY PO Last administered on 04/17/17 09 :30; Admin Dose 30 MG; Start 04/17/17 at 09:00 Metoprolol Succinate (Toprol Xl) 25 mg DAILY PO Last administered on 04/17/17 09:27; Admin Dose 25 MG; Start 04/17/17 at 09:00 Prasugrel (Effient) 10 mg DAILY PO Last administered on 04/17/17 09:29; Admin Dose 10 MG; Start 04/17/17 at 09:00 Spironolactone 25 mg 25 mg DAILY PO Last administered on 04/17/17 09:30; Admin Dose 25 MG; Start 04/17/17 at 09:00 Diltiazem HCl (Cardizem-D5W 125 Mg/125 ml Drip) 125 ml @ 5 mls/hr TITRATE IV Last administered on 04/17/17 02:46; Admin Dose 5 MLS/HR; Start 04/17/17 at 02: 00 DELANEY ROMERO MD Apr 17, 2017 15:21
[2017-04-17 15:22] LABS: BASOPHILS % 0.2 % (0.0-2.0); EOSINOPHILS % 0.4 % (0.0-7.0); HEMATOCRIT 36.2 % (42.0-52.0); HEMOGLOBIN 11.4 g/dl (14.0-18.0); LYMPHOCYTES # 0.7 10^3/ul (0.8-2.9); MEAN CORPUSCULAR HEMOGLOBIN 28.4 pg (29.0-33.0); MEAN CORPUSCULAR HGB CONC 31.5 g/dl (32.0-37.0); MEAN PLATELET VOLUME 10.8 fl (7.4-10.4); MONOCYTE # 0.6 10^3/ul (0.3-0.9); MONOCYTES % 11.8 % (0.0-11.0); NEUTROPHIL # 3.6 10^3/ul (1.6-7.5); NEUTROPHILS % 73.4 % (39.0-77.0); PLATELET COUNT 156 10^3/UL (140-415); RED BLOOD COUNT 4.02 10^6/ul (4.70-6.10); RED CELL DISTRIBUTION WIDTH 14.4 % (11.5-14.5); WHITE BLOOD COUNT 4.9 10^3/ul (4.8-10.8)
[2017-04-17] MEDS ORDERED: RIVAROXABAN 20 MG TABLET PO SCH (18:05)
[2017-04-18] VITALS (10 sets, daily range): BP systolic 110–129; BP diastolic 64–87; PULSE 34–100; RESP 18–19
[2017-04-18] MEDS: FUROSEMIDE 40 MG TAB PO SCH (06:20)
[2017-04-18 07:40] LABS: BASOPHILS % 0.4 % (0.0-2.0); EOSINOPHILS # 0.1 10^3/ul (0.0-0.5); HEMATOCRIT 34.6 % (42.0-52.0); HEMOGLOBIN 10.7 g/dl (14.0-18.0); LYMPHOCYTES # 0.8 10^3/ul (0.8-2.9); LYMPHOCYTES % 15.1 % (15.0-51.0); MEAN CORPUSCULAR HEMOGLOBIN 27.7 pg (29.0-33.0); MEAN CORPUSCULAR HGB CONC 30.9 g/dl (32.0-37.0); MEAN CORPUSCULAR VOLUME 89.6 fl (82.0-101.0); MEAN PLATELET VOLUME 11.4 fl (7.4-10.4); MONOCYTE # 0.5 10^3/ul (0.3-0.9); MONOCYTES % 10.1 % (0.0-11.0); NEUTROPHIL # 3.6 10^3/ul (1.6-7.5); PLATELET COUNT 151 10^3/UL (140-415); RED BLOOD COUNT 3.86 10^6/ul (4.70-6.10); RED CELL DISTRIBUTION WIDTH 14.5 % (11.5-14.5)
[2017-04-18] MEDS: PRASUGREL HYDROCHLORIDE 10 MG TABLET PO SCH (08:07)
[2017-04-18] MEDS: metFORMIN 500 MG TAB PO SCH (08:07)
[2017-04-18] MEDS: SPIRONOLACTONE 25 MG TAB PO SCH (08:07)
[2017-04-18] MEDS: ISOSORBIDE MONONITRATE(SR)30 MG TAB PO SCH (08:07)
[2017-04-18] MEDS: BENAZEPRIL 40 MG TAB PO SCH (08:07)
[2017-04-18] MEDS: METOPROLOL (XL) 25 MG TAB PO SCH (08:08)
[2017-04-18] MEDS: AMLODIPINE 10 MG TAB PO SCH (08:08)
[2017-04-18 08:32] LABS: CALCIUM 9.5 mg/dl (8.4-10.2); CREATININE 1.4 mg/dl (0.61-1.24); MAGNESIUM 2.2 mg/dl (1.7-2.5); PHOSPHORUS 3.8 mg/dl (2.5-4.9); POTASSIUM 4.8 mmol/L (3.5-5.1)
--- NOTE | 2017-04-18 14:22 | CONS ---
Date/Time of Note Date/Time of Note DATE: 04/18/17 TIME: 14:18 Assessment/Plan Assessment/Plan Additional Assessment/Plan 1. Chest pain. Assess for acute coronary syndrome. R/o Mi - doubt ischemia now. 2. Leg pain concerning for claudication - Dr. Zuniga follows as outpt. 3. Peripheral arterial disease by ultrasound. 4. Hypertension- well Rx now. 5. Dyslipidemia with significantly elevated LDL. 6. History of PTS stent placement, most recently to LAD March 2016. 7. Cardiomyopathy with mild depressed left EF. 9. Renal failure. 10. Coagulopathy. 11. A. fib - with braday, but no symptoms - no class I indication for pacer now , but will monitor - hold dilt gtt Consultation Date/Type/Reason Admit Date/Time Apr 16, 2017 at 23:17 24 HR Interval Summary Free Text/Dictation No acute events - BP in good range - pauses < 3 second, no symptoms - MED rx for now. If symptoms, will consider pacer. ROS: No fever, no chills, no nausea, no vomiting, no diarrhea/constipation No recent weight changes No chest pain, no PND, no orthopnea No dizziness, blurred vision No thirst, no heat or cold intolerance Exam/Review of Systems Vital Signs Vitals Vital Signs Date Time Temp Pulse Resp B/P Pulse Ox O2 Delivery O2 Flow Rate FiO2 04/18/17 12:06 75 04/18/17 11:37 97.4 18 110/64 95 04/18/17 08:00 Nasal Cannula 2.0 Intake and Output 04/17/17 04/17/17 04/18/17 15:00 23:00 07:00 Intake Total 600 ml 400 ml Balance 600 ml 400 ml Exam General: WN/WD/NAD, AOx HEENT: Unicetric/atraumatic/EOMI (follow commands) NECK: JVD elevated, no thyromegaly Lymph: no lymphadenopathy HEART: Irregular with no S3, II/ systolic murmur at apex LUNGS: Coarse sounds ABD: soft, NT, ND, +BS : Intact Neuro: non focal SKIN: chronic changes EXT: trace edema Results Result Diagram: 04/18/17 0701 04/18/17 0723 Results 24 hrs Laboratory Tests Test 04/17/17 15:12 04/18/17 07:01 04/18/17 07:23 White Blood Count 4.9 # 5.0 Red Blood Count 4.02 L 3.86 L Hemoglobin 11.4 L 10.7 L Hematocrit 36.2 L 34.6 L Mean Corpuscular Volume 90.0 89.6 Mean Corpuscular Hemoglobin 28.4 L 27.7 L Mean Corpuscular Hemoglobin Concent 31.5 L 30.9 L Red Cell Distribution Width 14.4 14.5 Platelet Count 156 151 Mean Platelet Volume 10.8 H 11.4 H Neutrophils % 73.4 72.0 Lymphocytes % 14.0 L 15.1 Monocytes % 11.8 H 10.1 Eosinophils % 0.4 2.0 Basophils % 0.2 0.4 Nucleated Red Blood Cells % 0.0 0.0 Neutrophils # 3.6 3.6 Lymphocytes # 0.7 L 0.8 Monocytes # 0.6 0.5 Eosinophils # 0.0 0.1 Basophils # 0.0 0.0 Nucleated Red Blood Cells # 0.0 0.0 Sodium Level 138 Potassium Level 4.8 Chloride Level 100 Carbon Dioxide Level 30 Anion Gap 13 Blood Urea Nitrogen 41 #H Creatinine 1.40 H Glucose Level 82 # Calcium Level 9.5 Phosphorus Level 3.8 Magnesium Level 2.2 Medications Medications Current Medications Ondansetron HCl (Zofran Inj) 4 mg Q6H PRN IV NAUSEA AND/OR VOMITING; Start at 02:00 Nitroglycerin (Nitroglycerin (Sl Tab) 0.4 Mg) 1 tab Q5M PRN SL CHEST PAIN; Start 04/17/17 at 02:00 Acetaminophen (Tylenol Tab) 650 mg Q6H PRN PO PAIN LEVEL 1-3 OR FEVER; Start at 02:00 Morphine Sulfate (morphine) 2 mg Q4H PRN IV PAIN LEVEL 7-10; Start 04/17/17 at 02:00 Amlodipine Besylate (Norvasc) 5 mg DAILY PO Last administered on 04/18/17 08: 08; Admin Dose 5 MG; Start 04/17/17 at 09:00 Benazepril HCl (Lotensin) 40 mg DAILY PO Last administered on 04/18/17 08:07; Admin Dose 40 MG; Start 04/17/17 at 09:00 Furosemide (Lasix) 40 mg DAILY@06 PO Last administered on 04/18/17 06:20; Admin Dose 40 MG; Start 04/17/17 at 06:00 Isosorbide Mononitrate (Imdur) 30 mg DAILY PO Last administered on 04/18/17 08 :07; Admin Dose 30 MG; Start 04/17/17 at 09:00 Metoprolol Succinate (Toprol Xl) 25 mg DAILY PO Last administered on 04/18/17 08:08; Admin Dose 25 MG; Start 04/17/17 at 09:00 Prasugrel (Effient) 10 mg DAILY PO Last administered on 04/18/17 08:07; Admin Dose 10 MG; Start 04/17/17 at 09:00 Spironolactone 25 mg 25 mg DAILY PO Last administered on 04/18/17 08:07; Admin Dose 25 MG; Start 04/17/17 at 09:00 Diltiazem HCl (Cardizem-D5W 125 Mg/125 ml Drip) 125 ml @ 5 mls/hr TITRATE IV Last administered on 04/17/17 02:46; Admin Dose 5 MLS/HR; Start 04/17/17 at 02: 00 DELANEY ROMERO MD Apr 18, 2017 14:22
--- NOTE | 2017-04-18 14:37 | PDOCDIS ---
Discharge Instructions DIAGNOSIS Discharge Diagnosis 1. Chest pain. Likely atypical. 2. A. fib with RVR. 3. PAD 4. Hypertension 5. Dyslipidemia 6. History of cardiomyopathy 7. History of CKD CONDITION Patient Condition: Stable HOME CARE INSTRUCTIONS: Special Diet: Carb controlled FOLLOW UP/APPOINTMENTS Follow-up Plan 1. Follow up with Dr. Oscar Zuniga in one week DIEGO TOWNSEND Apr 18, 2017 14:37
--- NOTE | 2017-04-18 14:47 | DS ---
Date/Time of Note Date/Time of Note DATE: 04/18/17 TIME: 14:40 Discharge Summary Admission/Discharge Info Admit Date/Time Apr 16, 2017 at 23:17 Discharge Date/Time Discharge Diagnosis 1. Chest pain. Likely atypical. 2. A. fib with RVR. 3. PAD 4. Hypertension 5. Dyslipidemia 6. History of cardiomyopathy 7. History of CKD Patient Condition: Stable Consults 1. Dr. Alli Lindquist Hospital Course This is a 62-year-old male with history of CAD status post PCI, ischemic cardiomyopathy, CHF, diabetes, who came [facility] due to reports of exertional weakness and some shortness of breath or palpitations. Of note he is admitted 6 weeks prior to this admission and had a stress test that showed new moderate size nonreversible perfusion defect involving the and anterior apical distal to mid anterior and distal to mid anteroseptal baldwin with moderate hypokinesis of the left ventricle with EF of 36%. His echo at that time also showed an EF of 35-40%. Patient was brought to [facility] due to the aformentiond issues and seen by project crew worker. Patient did receive Cardizem drip after he was found to be in atrial fibrillation with RVR. He did have good response and this did resolve. We did do serial troponins which were negative. Was noted with some renal insufficiency but after looking at his labs he was likely at his baseline. Is otherwise optimized medically. He was continued on antihypertensives for hypertension and statin medication for his dyslipidemia. He was optimized with his cardiovascular medications for CHF and cardiomyopathy and metformin for his diabetes. He is also continued on Xarelto for atrial fibrillation. After discussion with project crew worker no need for further Cardizem at this time and patient was instructed to follow-up with project crew worker within a week. During his course of stay he did improve. The plan of care was discussed with the patient and patient did verbalizes understanding. On the day of discharge patient was in stable condition Discussed plan of care with Dr. Morales [facility] Active Scripts Metoprolol Succinate* (Toprol XL*) 25 Mg Tab.sr.24h, 25 MG PO DAILY for 30 Days , #30 Prov:CARMENZA MCPHERSON MD 02/26/17 Isosorbide Mononitrate* (Isosorbide Mononitrate*) 30 Mg Tab.er.24h, 30 MG PO DAILY for 30 Days, #30 Prov:CARMENZA MCPHERSON MD 02/26/17 Amlodipine Besylate* (Amlodipine Besylate*) 10 Mg Tablet, 5 MG PO DAILY, #30 TAB Prov:CARMENZA MCPHERSON MD 02/26/17 Rivaroxaban* (Xarelto*) 20 Mg Tablet, 20 MG PO WITH DINNER for 30 Days, TAB 11 Refills Prov:COLETTE DUNBAR 06/11/16 Prasugrel Hydrochloride* (Effient*) 10 Mg Tablet, 10 MG PO DAILY for 30 Days, TAB 11 Refills Prov:BETTINARadhaSHALOM Casiano 06/11/16 Metformin Hcl* (Metformin Hcl*) 1,000 Mg Tablet, 1000 MG PO BID WITH MEALS, #30 TAB Prov:BETTINARadhaSHALOM Casiano 06/11/16 Reported Medications Furosemide* (Furosemide*) 40 Mg Tablet, 40 MG PO DAILY, TAB 04/17/17 Spironolactone* (Aldactone*) 25 Mg Tablet, 25 MG PO DAILY, #30 TAB 02/23/17 Benazepril Hcl* (Benazepril Hcl*) 40 Mg Tablet, 40 MG PO DAILY, #30 TAB 02/23/17 Hydralazine Hcl* (Hydralazine Hcl*) 100 Mg Tablet, 100 MG PO Q8, #90 TAB 02/23/17 Follow-up Plan 1. Follow up with Dr. Oscar Zuniga in one week Primary Care Provider Oscar Zuniga Time spent on discharge: > 30 minutes Pending Labs Laboratory Tests Test 04/17/17 15:12 04/18/17 07:01 04/18/17 07:23 White Blood Count 4.910^3/ul (4.8-10.8) 5.010^3/ul (4.8-10.8) Red Blood Count 4.0210^6/ul (4.70-6.10) 3.8610^6/ul (4.70-6.10) Hemoglobin 11.4g/dl (14.0-18.0) 10.7g/dl (14.0-18.0) Hematocrit 36.2% (42.0-52.0) 34.6% (42.0-52.0) Mean Corpuscular Volume 90.0fl (82.0-101.0) 89.6fl (82.0-101.0) Mean Corpuscular Hemoglobin 28.4pg (29.0-33.0) 27.7pg (29.0-33.0) Mean Corpuscular Hemoglobin Concent 31.5g/dl (32.0-37.0) 30.9g/dl (32.0-37.0) Red Cell Distribution Width 14.4% (11.5-14.5) 14.5% (11.5-14.5) Platelet Count 60268^3/UL (140-415) 95469^3/UL (140-415) Mean Platelet Volume 10.8fl (7.4-10.4) 11.4fl (7.4-10.4) Neutrophils % 73.4% (39.0-77.0) 72.0% (39.0-77.0) Lymphocytes % 14.0% (15.0-51.0) 15.1% (15.0-51.0) Monocytes % 11.8% (0.0-11.0) 10.1% (0.0-11.0) Eosinophils % 0.4% (0.0-7.0) 2.0% (0.0-7.0) Basophils % 0.2% (0.0-2.0) 0.4% (0.0-2.0) Nucleated Red Blood Cells % 0.0/100WBC (0.0-0.0) 0.0/100WBC (0.0-0.0) Neutrophils # 3.610^3/ul (1.6-7.5) 3.610^3/ul (1.6-7.5) Lymphocytes # 0.710^3/ul (0.8-2.9) 0.810^3/ul (0.8-2.9) Monocytes # 0.610^3/ul (0.3-0.9) 0.510^3/ul (0.3-0.9) Eosinophils # 0.010^3/ul (0.0-0.5) 0.110^3/ul (0.0-0.5) Basophils # 0.010^3/ul (0.0-0.1) 0.010^3/ul (0.0-0.1) Nucleated Red Blood Cells # 0.010^3/ul (0.0-0.0) 0.010^3/ul (0.0-0.0) Sodium Level 138mmol/L (135-144) Potassium Level 4.8mmol/L (3.5-5.1) Chloride Level 100mmol/L (97-110) Carbon Dioxide Level 30mmol/L (21-31) Anion Gap 13 (8-16) Blood Urea Nitrogen 41mg/dl (7-20) Creatinine 1.40mg/dl (0.61-1.24) Glucose Level 82mg/dl (70-220) Calcium Level 9.5mg/dl (8.4-10.2) Phosphorus Level 3.8mg/dl (2.5-4.9) Magnesium Level 2.2mg/dl (1.7-2.5) DIEGO TOWNSEND Apr 18, 2017 14:47
== END 2017-04-18 15:40 | disposition home or self-care (01) | DRG 291 ==
LOC: E/R 20:52 → MS4 23:17
PROVIDERS: ADMIT Internal Medicine; ATTEND Internal Medicine
DX: I13.0 Hypertensive heart and chronic kidney disease with heart failure and stage 1 through stage 4 chronic kidney disease, or unspecified chronic kidney disease (principal); I50.21 Acute systolic (congestive) heart failure; I42.9 Cardiomyopathy, unspecified; I73.9 Peripheral vascular disease, unspecified; I48.91 Unspecified atrial fibrillation; E03.9 Hypothyroidism, unspecified; Z95.5 Presence of coronary angioplasty implant and graft; E11.9 Type 2 diabetes mellitus without complications; E78.5 Hyperlipidemia, unspecified; R07.89 Other chest pain; N18.9 Chronic kidney disease, unspecified
CPT/HCPCS: 36415; 71010; 80048; 80053; 82550; 82553; 82962; 83735; 83880; 84100; 84484; 85025; 93005; 96374; 96375; J1940

== ENCOUNTER 2017-12-04 22:56 | Inpatient (IN) | END 2017-12-06 16:10 | disposition home or self-care (01) | DRG 292 ==

== ENCOUNTER 2018-10-04 22:46 | Emergency (ER) | payer MEDICARE, OTHER ==
[~2018-10-04] VITALS: Ht 167.6 cm; Wt 106.8 kg
[~2018-10-04 22:46] MED LIST changes: -AMLO-147 PO; +AMLO5TAB4 PO; +ATOR20TA65 PO; -BENA40TA41 PO; +BENA40TA56 PO; +FURO40TA4 PO; -HYDR100T25 PO; -ISOS30TA5 PO; -METF1000 PO; +METF100010 PO; -METO-335 PO; +METO-448 GTB; +NITR0.4T39 SL; -RIVA20TA PO; +RIVA20TA5 PO; -SPIR25TA PO
[2018-10-04 22:51] VITALS: Ht 167.6 cm; Wt 106.8 kg
[2018-10-05] MEDS ORDERED: HYDROCODONE/APAP (10/325) TAB PO ONE (02:00)
[2018-10-05] MEDS ORDERED: METO5TAB65 PO (03:08)
[2018-10-05] MEDS ORDERED: TRAM50TA2 PO (04:52)
--- NOTE | 2018-10-05 04:57 | ERD ---
ER Documentation Chief Complaint Chief Complaint BIB [id number], from home,L knee pain r/t fall,ambulatory,no deformity noted HPI This is a 63-year-old male brought in from home with complaints of left knee pain status post fall. He is ambulatory and there is no deformity noted however he complains of pain. Pain is mild to moderate intensity with no exacerbating alleviating factors. Denies any other current issues. He was noted to have an elevated blood pressure in triage. Does have history of hypertension. Did not take his medication. ROS All systems reviewed and are negative except as per history of present illness. Medications Home Meds Active Scripts Tramadol HCl (Tramadol HCl) 50 Mg Tablet, 50 MG PO Q4 PRN for PAIN, #20 TAB Prov:SHIVANI ROBERTO 10/05/18 Furosemide* (Furosemide*) 40 Mg Tablet, 40 MG PO BID, #60 TAB Prov:RUBEN CHAPMAN SENIOR CLINICAL RESEARCH SCIENTIST 12/06/17 Metoprolol Tartrate* (Lopressor*) 25 Mg Tab, 25 MG GTB BID, #60 TAB Prov:RUBEN CHAPMAN SENIOR CLINICAL RESEARCH SCIENTIST 12/06/17 Atorvastatin Calcium (Atorvastatin Calcium) 20 Mg Tablet, 20 MG PO HS, #30 TAB Prov:RUBEN CHAPMAN SENIOR CLINICAL RESEARCH SCIENTIST 12/06/17 Reported Medications Metolazone* (Metolazone*) 5 Mg Tablet, 5 MG PO DAILY, TAB 10/05/18 Nitroglycerin* (Nitrostat*) 0.4 Mg Tab.subl, 0.4 MG SL Q5MIN PRN for CHEST PAIN, BOTTLE 12/04/17 Prasugrel Hydrochloride* (Effient*) 10 Mg Tablet, 10 MG PO DAILY, TAB 12/04/17 Rivaroxaban* (Xarelto*) 20 Mg Tablet, 20 MG PO WITH DINNER, TAB 12/04/17 Metformin Hcl* (Metformin Hcl*) 1,000 Mg Tablet, 1000 MG PO WITH BREAKFAST DINNE, #60 TAB 12/04/17 Amlodipine Besylate* (Norvasc*) 5 Mg Tablet, 5 MG PO DAILY, TAB 12/04/17 Benazepril Hcl* (Benazepril Hcl*) 40 Mg Tablet, 40 MG PO DAILY, #30 TAB 12/04/17 Allergies Allergies: Coded Allergies: No Known Allergies (Verified Allergy, Unknown, 12/04/17) PMhx/Soc Medical and Surgical Hx: pt denies Medical Hx, pt denies Surgical Hx History of Surgery: Yes Anesthesia Reaction: No Hx Neurological Disorder: No Hx Respiratory Disorders: Yes Hx Cardiac Disorders: Yes Hx Psychiatric Problems: No Hx Miscellaneous Medical Probl: No Hx Alcohol Use: No Hx Substance Use: No Hx Tobacco Use: No Smoking Status: Never smoker Physical Exam Vitals Vital Signs Date Temp Pulse Resp B/P (MAP) Pulse Ox O2 O2 Flow FiO2 Time Delivery Rate 10/05/18 81 16 162/80 98 Room Air 04:03 (107) 10/05/18 98.4 95 18 207/107 95 Room Air 01:44 (140) 10/04/18 98.4 75 18 216/97 95 22:51 (136) Physical Exam Const: No acute distress Head: Atraumatic Eyes: Normal Conjunctiva ENT: Normal External Ears, Nose and Mouth. Neck: Full range of motion. No meningismus. Resp: Clear to auscultation bilaterally Cardio: Regular rate and rhythm, no murmurs Abd: Soft, non tender, non distended. Normal bowel sounds Skin: No petechiae or rashes Back: No midline or flank tenderness Ext: No cyanosis, or edema Neur: Awake and alert Psych: Normal Mood and Affect Results 24 hrs Current Medications Medications Dose Sig/Jovani Start Time Status Last (Trade) Ordered Route PRN Stop Time Admin Dose Reason Admin Hydralazine 50 mg ONCE ONCE 10/05/18 DC 10/05/18 HCl PO 02:00 10/05/18 02:01 (Apresoline) 02:01 1 tab ONCE ONCE 10/05/18 DC 10/05/18 Acetaminophen PO 02:00 10/05/18 01:51 / 02:01 Hydrocodone Bitart ([facility] ()) Procedures/MDM X-ray Knee 3V Interpreted by me: Bones: [No fracture] Joints: [No dislocation] Foreign body: [None] Medical decision making: This is a 63-year-old male with a knee contusion. No evidence of fracture. Ambulatory. Stable for outpatient management follow-up with PCP. Patient's blood pressure was elevated (>120/80) but appears stable without evidence of hypertension emergency or urgency. The patient was coun seled about the risks of hypertension and urged to pursue outpatient monitoring and therapy within a week with their primary care physician. Departure Diagnosis: Primary Impression: Knee pain Chronicity: unspecified Laterality: unspecified laterality Qualified Codes: M25.569 - Pain in unspecified knee Condition: Stable Patient Instructions: Knee Pain, Uncertain Cause SHIVANI ROBERTO Oct 05, 2018 04:57
[2018-10-05 05:09] VITALS: BP 144/78; PULSE 82; RESP 16
== END 2018-10-05 05:10 | disposition home or self-care (01) ==
LOC: E/R 22:46
DX: S80.02XA Contusion of left knee, initial encounter (principal); I10 Essential (primary) hypertension; W18.39XA Other fall on same level, initial encounter; Y92.9 Unspecified place or not applicable; Z79.84 Long term (current) use of oral hypoglycemic drugs
CPT/HCPCS: 73562